=== PATIENT | female | born 1960 | race Caucasian/White ===

== ENCOUNTER 2016-09-17 09:53 | Day surgery (SDC) | payer BC ==
[2016-09-12 15:00] VITALS: BMI 26.5
[~2016-09-17 09:53] MED LIST: LACTATED RINGERS 1,000 ML IV SCH
[2016-09-17] MEDS ORDERED: LIDOCAINE 1% 20 ML VIAL (10MG/ML) FOR IV START SQ ONE (10:10)
[2016-09-17 10:13] VITALS: TEMP 97.3
[2016-09-17] MEDS ORDERED: PROPOFOL 10 MG/ML 20 ML VIAL IV ONE (11:14)
--- NOTE | 2016-09-17 11:51 | P.PCN ---
Date of Procedure: 09/17/16 Procedure(s) Performed: Procedure: 1. Esophagogastroduodenoscopy and biopsy. 2. Total colonoscopy. Preoperative diagnosis: Screening for colon neoplasia and chronic reflux symptoms. Postoperative diagnosis: 1. Moderately sized hiatal hernia but no obvious esophagitis or complicated reflux disease. 2. Mild antral gastritis. 3. Sigmoid diverticulosis. 4. No polyps or cancer. Preparation: HalfLytely prep. Sedation: Was provided by anesthesia. Brief clinical history: The patient is a 55-year-old female who is referred for this evaluation for screening for colon neoplasia. Her last exam was more than 10 years ago. In addition, she has chronic reflux symptoms and more recently she has been having episodes of vomiting while on therapy. This evaluation is to assess for esophagitis, complicated reflux disease or other pathology in the upper GI tract. Procedure: With the patient on her left lateral decubitus position and after informed consent and adequate sedation, I passed the Olympus-GIF 160 video upper endoscope through the cricopharyngeus down the esophagus. GE junction was around 36 cm from the incisors and there was a moderately side sliding hiatal hernia. The esophagus did not show any obvious esophagitis or complicated reflux disease. The endoscope was then passed into the stomach which was insufflated with air and inspected in detail including the retroflex view in the cardia. There was some mottling and erythema in the antrum but no ulcers or erosions. Pyloric channel, duodenal bulb, post bulbar area and descending duodenum appeared within normal limits. I obtained multiple biopsies from the duodenum, antrum and esophagus then the endoscope was withdrawn and I proceeded with the colonoscopy. Perianal area did not show any fissures or fistulas. There were no masses felt on digital rectal examination. The Olympus CFQ 160L video colonoscope was then inserted in the rectum in the usual fashion and advanced to the cecum. The mucosa appeared healthy. There were multiple diverticular orifices seen scattered in the sigmoid but I saw no evidence of acute diverticulitis or strictures. No polyps or tumors were seen. I retroflexed endoscope in the rectum before the endoscope was withdrawn. The patient tolerated the procedure well. Plan: The patient was reassured. Discussed dietary measures. We will await pathology results and make further plans based on her course and biopsy results. I recommended repeat colonoscopy in 10 years.
[2016-09-17 11:56] VITALS: RESP 18
[2016-09-17] MEDS ORDERED: LACTATED RINGERS 1,000 ML IV ONE (12:30)
[2016-09-17 14:56] VITALS: BP 129/79; PULSE 71
== END 2016-09-17 14:38 | disposition home or self-care (01) ==
LOC: ORWHC2ENDO 09:53
DX: Z12.11 Encounter for screening for malignant neoplasm of colon (principal); K29.50 Unspecified chronic gastritis without bleeding; K44.9 Diaphragmatic hernia without obstruction or gangrene; K21.0 Gastro-esophageal reflux disease with esophagitis; K57.30 Diverticulosis of large intestine without perforation or abscess without bleeding; G43.909 Migraine, unspecified, not intractable, without status migrainosus; Z79.82 Long term (current) use of aspirin; Z79.899 Other long term (current) drug therapy
CPT/HCPCS: 88305; 88342; 43239; J2704; G0121; 99153

== ENCOUNTER 2016-09-17 16:46 | Observation (INO) | payer BC ==
[2016-09-17] MEDS ORDERED: MORPHINE SULFATE 4 MG/ML SYRINGE IVP STA (18:26)
[2016-09-17] MEDS ORDERED: RX INFO: IV CONTRAST WAS GIVEN 1 EACH MISC MISCELLANE PRN (18:27)
--- NOTE | 2016-09-17 18:43 | ED ---
Abdominal Pain HPI - General Source: patient, RN notes reviewed Mode of arrival: wheelchair Limitations: no limitations <Angeles Wilder - Last Filed: 09/17/16 20:02> <Bladimir Story - Last Filed: 09/17/16 21:52> - General Chief Complaint: Abdominal Pain Stated Complaint: gastric pain post scope today Time Seen by Provider: 09/17/16 17:40 - History of Present Illness Initial Comments: Patient is a 55-year-old female presents to the emergency room for evaluation of left shoulder and abdominal pain. Patient states she had a colonoscopy and endoscopy done by Dr. Davenport around 11:30 this morning. Patient states she was sent home around 3 PM this afternoon. Patient states when she got home she began developing worsening left shoulder pain and abdominal pain. Patient every time she moves her shoulder the pain radiates to the anterior portion of her chest down to her epigastric area. Patient states that she has been passing gas. Patient states she feels nauseous when she has pain. Patient states the pain comes in waves. Patient denies shortness of breath. Patient has no numbness or tingling in her arm. Patient states the pain radiates from the left side of her neck down to the anterior portion of her shoulder. Patient states she's not sure she strained a muscle during the procedure. Patient's is present with patient. Patient's states that they called Dr. Davenport and was advised to come to the emergency room. (Angeles Wilder) - Related Data Home Medications Medication Instructions Recorded Confirmed Dextroamphetamine/Amphetamine 30 mg PO DAILY 07/31/14 09/17/16 [Adderall Xr] Omeprazole [Omeprazole] 20 mg PO DAILY 07/31/14 09/17/16 Simvastatin [Simvastatin] 20 mg PO HS 07/31/14 09/17/16 Aspirin [Adult Low Dose Aspirin EC] 81 mg PO HS 09/12/16 09/17/16 Topiramate [Topiramate] 50 mg PO BID 09/12/16 09/17/16 Allergies Allergy/AdvReac Type Severity Reaction Status Date / Time No Known Allergies Allergy Verified 09/17/16 17:49 Review of Systems ROS Other: All systems not noted in ROS Statement are negative. <Angeles Wilder - Last Filed: 09/17/16 20:02> ROS Other: All systems not noted in ROS Statement are negative. <Bladimir Story - Last Filed: 09/17/16 21:52> ROS Statement: Those systems with pertinent positive or pertinent negative responses have been documented in the HPI. Past Medical History Past Medical History: GERD/Reflux, Hyperlipidemia, Neurologic Disorder Additional Past Medical History / Comment(s): MIGRAINES History of Any Multi-Drug Resistant Organisms: None Reported Past Surgical History: Appendectomy, Orthopedic Surgery Additional Past Surgical History / Comment(s): left foot SX. COLONOSCOPY, EGD Past Anesthesia/Blood Transfusion Reactions: No Reported Reaction Past Psychological History: ADD/ADHD Smoking Status: Current every day smoker Past Alcohol Use History: Occasional Past Drug Use History: None Reported - Past Family History Mother Family Medical History: No Reported History <Angeles Wilder - Last Filed: 09/17/16 20:02> General Exam Limitations: no limitations General appearance: alert Head exam: Present: atraumatic, normocephalic, normal inspection Eye exam: Present: normal appearance ENT exam: Present: normal exam Neck exam: Present: normal inspection, tenderness (Tenderness on palpating over the trapezius muscle on the left side) Respiratory exam: Present: normal lung sounds bilaterally. Absent: respiratory distress Cardiovascular Exam: Present: regular rate, normal rhythm, normal heart sounds GI/Abdominal exam: Present: soft, tenderness (Mid upper epigastric pain.), normal bowel sounds. Absent: distended, guarding, rebound, rigid Left Shoulder Exam: Present: full ROM, tenderness (anterior shoulder joint) Vascular: Present: normal capillary refill, radial pulse (2+), ulnar pulse (2+) Back exam: Present: normal inspection Neurological exam: Present: alert, oriented X3, CN II-XII intact, normal gait Psychiatric exam: Present: normal affect, normal mood Skin exam: Present: warm, dry, intact, normal color. Absent: rash <Angeles Wilder - Last Filed: 09/17/16 20:02> <Bladimir Story - Last Filed: 09/17/16 21:52> - General Exam Comments Initial Comments: Laying in exam room, appears uncomfortable secondary to pain, no acute distress. (Angeles Wilder) Course <Angeles Wilder - Last Filed: 09/17/16 20:02> <Bladimir Story - Last Filed: 09/17/16 21:52> Vital Signs 09/17/16 09/17/16 17:17 20:00 Temperature 97.1 F L Pulse Rate 82 82 Respiratory 16 18 Rate Blood Pressure 126/71 147/94 O2 Sat by Pulse 99 97 Oximetry - Reevaluation(s) Reevaluation #1: 09/17/16 20:46 Patient reevaluated by myself, Dr. Story. Patient does have still continued discomfort however states pain is not quite as severe. Abdomen has moderate diffuse tenderness. Patient updated. 09/17/16 20:56 Case was discussed in detail with Dr. Newby who is familiar with this patient including CT results. He does recommend medical admission and observation. He will consult. 09/17/16 21:23 Case was discussed in detail with Dr. Dr. Tam, who will admit for Dr. Reyes. He request discussing case with on-call surgery. Dr. Patterson has been paged. 09/17/16 21:51 Case was discussed with radiologist as well as Dr. Patterson twice. Patient will be observed throughout the night. She will consult. (Bladimir Story) Medical Decision Making - Lab Data Result diagrams: 09/17/16 18:22 09/17/16 18:22 <Angeles Wilder - Last Filed: 09/17/16 20:02> - Lab Data Result diagrams: 09/17/16 18:22 09/17/16 18:22 - Radiology Data Radiology results: report reviewed (Computed tomography scan shows no free air however does have some fluid in the abdomen.) <Bladimir Story - Last Filed: 09/17/16 21:52> - Lab Data Lab Results 09/17/16 09/17/16 09/17/16 Range/Units 18:22 18:22 18:22 WBC 14.2 H (3.8-10.6) k/uL RBC 3.52 L (3.80-5.40) m/uL Hgb 11.8 (11.4-16.0) gm/dL Hct 34.9 (34.0-46.0) % MCV 99.0 (80.0-100.0) fL MCH 33.4 (25.0-35.0) pg MCHC 33.7 (31.0-37.0) g/dL RDW 13.1 (11.5-15.5) % Plt Count 256 (150-450) k/uL Neutrophils % 89 % Lymphocytes % 8 % Monocytes % 2 % Eosinophils % 0 % Basophils % 0 % Neutrophils # 12.7 H (1.3-7.7) k/uL Lymphocytes # 1.2 (1.0-4.8) k/uL Monocytes # 0.3 (0-1.0) k/uL Eosinophils # 0.0 (0-0.7) k/uL Basophils # 0.0 (0-0.2) k/uL PT (9.0-12.0) sec INR (<1.1) APTT (22.0-30.0) sec Sodium 138 (137-145) mmol/L Potassium 3.8 (3.5-5.1) mmol/L Chloride 109 H (98-107) mmol/L Carbon Dioxide 19 L (22-30) mmol/L Anion Gap 10 mmol/L BUN 11 (7-17) mg/dL Creatinine 0.51 L (0.52-1.04) mg/dL Est GFR (MDRD) Af Amer >60 (>60 ml/min/1.73 sqM) Est GFR (MDRD) Non-Af >60 (>60 ml/min/1.73 sqM) Glucose 139 H (74-99) mg/dL Calcium 8.7 (8.4-10.2) mg/dL Magnesium 1.7 (1.6-2.3) mg/dL Total Bilirubin 0.6 (0.2-1.3) mg/dL AST 22 (14-36) U/L ALT 34 (9-52) U/L Alkaline Phosphatase 65 (38-126) U/L Total Creatine Kinase 42 (30-135) U/L CK-MB (CK-2) 0.5 (0.0-2.4) ng/mL CK-MB (CK-2) Rel Index 1.2 Troponin I <0.012 (0.000-0.034) ng/mL Total Protein 6.1 L (6.3-8.2) g/dL Albumin 3.3 L (3.5-5.0) g/dL Amylase 32 (30-110) U/L Lipase 43 (23-300) U/L 09/17/16 Range/Units 18:22 WBC (3.8-10.6) k/uL RBC (3.80-5.40) m/uL Hgb (11.4-16.0) gm/dL Hct (34.0-46.0) % MCV (80.0-100.0) fL MCH (25.0-35.0) pg MCHC (31.0-37.0) g/dL RDW (11.5-15.5) % Plt Count (150-450) k/uL Neutrophils % % Lymphocytes % % Monocytes % % Eosinophils % % Basophils % % Neutrophils # (1.3-7.7) k/uL Lymphocytes # (1.0-4.8) k/uL Monocytes # (0-1.0) k/uL Eosinophils # (0-0.7) k/uL Basophils # (0-0.2) k/uL PT 10.7 (9.0-12.0) sec INR 1.1 (<1.1) APTT 20.6 L (22.0-30.0) sec Sodium (137-145) mmol/L Potassium (3.5-5.1) mmol/L Chloride (98-107) mmol/L Carbon Dioxide (22-30) mmol/L Anion Gap mmol/L BUN (7-17) mg/dL Creatinine (0.52-1.04) mg/dL Est GFR (MDRD) Af Amer (>60 ml/min/1.73 sqM) Est GFR (MDRD) Non-Af (>60 ml/min/1.73 sqM) Glucose (74-99) mg/dL Calcium (8.4-10.2) mg/dL Magnesium (1.6-2.3) mg/dL Total Bilirubin (0.2-1.3) mg/dL AST (14-36) U/L ALT (9-52) U/L Alkaline Phosphatase (38-126) U/L Total Creatine Kinase (30-135) U/L CK-MB (CK-2) (0.0-2.4) ng/mL CK-MB (CK-2) Rel Index Troponin I (0.000-0.034) ng/mL Total Protein (6.3-8.2) g/dL Albumin (3.5-5.0) g/dL Amylase (30-110) U/L Lipase (23-300) U/L 09/17/16 20:03 Normal sinus rhythm, ventricular rate 68 bpm, NE interval 160 ms, QRS duration 92 ms, QT/QTc 442/469 ms (Angeles Wilder) Disposition <Angeles Wilder - Last Filed: 09/17/16 20:02> <Bladimir Story - Last Filed: 09/17/16 21:52> Clinical Impression: Abdominal pain Disposition: ADMITTED IP TO THIS HOSP
[2016-09-17 19:04] LABS: Basophils % (A) 0 %; CH 33.4; CHCM 33.9; Eosinophils % (A) 0 %; HCT 34.9 % (34.0-46.0); HDW 2.28; HGB 11.8 gm/dL (11.4-16.0); Luc # (Auto) 0.08; Luc % (Auto) 1; Lymphocytes # (A) 1.2 k/uL (1.0-4.8); Lymphocytes % (A) 8 %; MCH 33.4 pg (25.0-35.0); MCHC 33.7 g/dL (31.0-37.0); Mean Platelet Volume 7.1; Monocytes # (A) 0.3 k/uL (0-1.0); Monocytes % (A) 2 %; Neutrophils # (A) 12.7 k/uL (1.3-7.7); Neutrophils % (A) 89 %; RBC 3.52 m/uL (3.80-5.40); RDW 13.1 % (11.5-15.5); WBC 14.2 k/uL (3.8-10.6); WBC (Perox) 14.32
[2016-09-17 19:13] LABS: INR 1.1 (<1.1); Prothrombin Time 10.7 sec (9.0-12.0)
[2016-09-17 19:17] LABS: ALT 34 U/L (9-52); AST 22 U/L (14-36); Alkaline Phosphatase 65 U/L (38-126); Amylase 32 U/L (30-110); Anion Gap 10 mmol/L; Blood Urea Nitrogen 11 mg/dL (7-17); Calcium 8.7 mg/dL (8.4-10.2); Carbon Dioxide 19 mmol/L (22-30); Chloride 109 mmol/L (98-107); Glucose 139 mg/dL (74-99); Magnesium 1.7 mg/dL (1.6-2.3); Non-African American GFR(MDRD) >60 (>60 ml/min/1.73 sqM); Potassium 3.8 mmol/L (3.5-5.1); Sodium 138 mmol/L (137-145); Total Bilirubin 0.6 mg/dL (0.2-1.3); Total Protein 6.1 g/dL (6.3-8.2)
[2016-09-17 19:23] LABS: Creatine Kinase 42 U/L (30-135)
[2016-09-17 19:26] LABS: Partial Thromboplastin Time 20.6 sec (22.0-30.0)
[2016-09-17] MEDS ORDERED: ORPHENADRINE 30 MG/ML 2 ML VIAL IVP STA (19:29)
[2016-09-17 19:35] LABS: Creatine Kinase MB 0.5 ng/mL (0.0-2.4); Troponin I <0.012 ng/mL (0.000-0.034)
--- NOTE | 2016-09-17 20:31 | CT ---
EXAMINATION TYPE: CT abdomen pelvis w con DATE OF EXAM: 09/17/2016 7:53 PM COMPARISON: NONE HISTORY: Colonscopy and EGD this morning. Abdominal, chest and left shoulder pain and pressure. CT DLP: 901.70 mGycm Automated exposure control for dose reduction was used. TECHNIQUE: Helical acquisition of images was performed from the lung bases through the pelvis. CONTRAST: Performed without Oral Contrast and with IV Contrast, patient injected with 100 mL of Omnipaque 300. FINDINGS: There is air noted in the left upper quadrant which is thought to represent colonic air at the level of the splenic flexure. Free fluid is present within the abdomen.. LUNG BASES: Some dependent atelectatic changes are present, no pleural or pericardial effusion. LIVER/GB: No significant abnormality is appreciated. PANCREAS: No significant abnormality is seen. SPLEEN: No significant abnormality is seen. ADRENALS: No significant abnormality is seen. KIDNEYS: No significant abnormality is seen. RETROPERITONEAL ADENOPATHY: None visualized REPRODUCTIVE ORGANS: No significant abnormality is seen URINARY BLADDER: No significant abnormality is seen. PELVIC ADENOPATHY: None visualized. OSSEOUS STRUCTURES: No significant abnormality is seen. BOWEL: Scattered diverticular changes associated with the sigmoid colon OTHER: Free fluid extends into the pelvis. IMPRESSION: DIFFICULT TO EXCLUDE PERFORATION IN LIGHT OF THE FREE FLUID WITHIN THE ABDOMEN. No definite pneumoperitoneum.
[2016-09-17] MEDS ORDERED: HYDROmorphone 1 MG/ML 1 ML SYRINGE IVP STA (20:47)
[2016-09-17] MEDS ORDERED: ONDANSETRON 4 MG/2 ML VIAL IVP PRN (21:52)
[2016-09-17] MEDS ORDERED: NALOXONE 0.4 MG/ML 1 ML VIAL IV PRN (21:52)
[2016-09-17] MEDS: SODIUM CHLORIDE 0.9% 1,000 ML IV SCH (22:19)
[2016-09-17] MEDS: PANTOPRAZOLE 40 MG/10 ML VIAL IV SCH (22:19)
[2016-09-18] MEDS: HYDROmorphone 1 MG/ML 1 ML SYRINGE IVP PRN ×5 (03:27→17:35)
[2016-09-18] MEDS: SODIUM CHLORIDE 0.9% 1,000 ML IV SCH (06:30)
[2016-09-18 07:21] LABS: Basophils % (A) 0 %; CH 32.9; CHCM 32.5; Eosinophils # (A) 0.1 k/uL (0-0.7); Eosinophils % (A) 1 %; HCT 30.1 % (34.0-46.0); HDW 2.28; Luc # (Auto) 0.15; Luc % (Auto) 2; Lymphocytes # (A) 2.3 k/uL (1.0-4.8); Lymphocytes % (A) 25 %; MCHC 32.4 g/dL (31.0-37.0); MCV 101.9 fL (80.0-100.0); Macrocytosis Slight; Monocytes # (A) 0.4 k/uL (0-1.0); Monocytes % (A) 4 %; Neutrophils # (A) 6.3 k/uL (1.3-7.7); Neutrophils % (A) 69 %; RBC 2.95 m/uL (3.80-5.40); RDW 13.2 % (11.5-15.5); WBC 9.2 k/uL (3.8-10.6); WBC (Perox) 9.62
[2016-09-18 07:29] LABS: ALT 36 U/L (9-52); AST 16 U/L (14-36); Alkaline Phosphatase 64 U/L (38-126); Anion Gap 8 mmol/L; Blood Urea Nitrogen 7 mg/dL (7-17); Calcium 8.2 mg/dL (8.4-10.2); Carbon Dioxide 20 mmol/L (22-30); Chloride 113 mmol/L (98-107); Glucose 80 mg/dL (74-99); Non-African American GFR(MDRD) >60 (>60 ml/min/1.73 sqM); Potassium 3.3 mmol/L (3.5-5.1); Sodium 141 mmol/L (137-145); Total Bilirubin 0.5 mg/dL (0.2-1.3); Total Protein 5.3 g/dL (6.3-8.2)
[2016-09-18 08:04] LABS: HGB 9.7 gm/dL (11.4-16.0)
--- NOTE | 2016-09-18 08:57 | P.GSCN ---
History of Present Illness Consult date: 09/18/16 Reason for Consult: Abdominal pain History of present illness: Patient is a 55-year-old white female who presented to the emergency room with a complaint of midepigastric and somewhat diffuse abdominal discomfort following an EGD and colonoscopy yesterday. Patient also complained of some left shoulder discomfort which has largely resolved. Review of the operative note reveals that this was screening for colonic neoplasia and procedure for chronic reflux symptoms. Postoperatively she was noted to have a moderately sized hiatal hernia but no obvious esophagitis or complicated reflux disease. She had mild antral gastritis. Sigmoid diverticulosis. No polyps or cancer. Multiple biopsies from the duodenum and antrum and esophagus were obtained. There was no obvious ulcer or erosion. On the colonoscopy the mucosa appeared healthy. Were multiple diverticular orifices. The patient at this time states that her abdominal discomfort has improved. She is hungry. And computed tomography scan was performed of the abdomen which revealed some free fluid but no pneumoperitoneum. Perforation could not be ruled out. The patient's white count on admission was 14.2 and this morning is noted to be 9.2. The patient hemodynamically was stable and she is afebrile and heart rate is 90 6. pressure 145/74. Past surgical history: 1. Appendectomy 2. Foot surgery Past medical history: Negative ALLERGIES: Negative Medical patient's: 1. Omeprazole 2. Adderall 3. Topamax 4. A medication for high cholesterol. Social history: 1. Smoking one pack per day for many years Alcohol: 4 drinks per day in the summer Marijuana: Negative Review of systems: HEENT: Tinnitus Lungs: Bronchitis Heart: Negative GI: GERD : Negative Review of Systems - Constitutional Reports as per HPI - Cardiovascular Reports as per HPI - Gastrointestinal Reports as per HPI - Genitourinary Genitourinary: Reports as per HPI Past Medical History Past Medical History: GERD/Reflux, Hyperlipidemia, Neurologic Disorder Additional Past Medical History / Comment(s): MIGRAINES History of Any Multi-Drug Resistant Organisms: None Reported Past Surgical History: Appendectomy, Orthopedic Surgery Additional Past Surgical History / Comment(s): left foot SX. COLONOSCOPY, EGD Past Anesthesia/Blood Transfusion Reactions: No Reported Reaction Past Psychological History: ADD/ADHD Smoking Status: Current every day smoker Past Alcohol Use History: Occasional Past Drug Use History: None Reported - Past Family History Mother Family Medical History: No Reported History Medications and Allergies Home Medications Medication Instructions Recorded Confirmed Type Dextroamphetamine/Amphetamine 30 mg PO DAILY 07/31/14 09/17/16 History [Adderall Xr] Omeprazole [Omeprazole] 20 mg PO DAILY 07/31/14 09/17/16 History Simvastatin [Simvastatin] 20 mg PO HS 07/31/14 09/17/16 History Aspirin [Adult Low Dose Aspirin EC] 81 mg PO HS 09/12/16 09/17/16 History Topiramate [Topiramate] 50 mg PO BID 09/12/16 09/17/16 History Allergies Allergy/AdvReac Type Severity Reaction Status Date / Time No Known Allergies Allergy Verified 09/17/16 17:49 Surgical - Exam Vital Signs Temp Pulse Resp BP Pulse Ox 97.1 F L 82 16 126/71 99 09/17/16 17:17 09/17/16 17:17 09/17/16 17:17 09/17/16 17:17 09/17/16 17:17 - General well developed, well nourished, no distress - Eyes normal ocular movement - ENT normal pinna, normal nares, no hearing loss - Neck no masses, trachea midline, no lymphadectomy, no venous distension - Respiratory normal expansion, normal respiratory effort, clear to auscultation - Cardiovascular Rhythm: regular - Abdomen Minimal midepigastric tenderness No guarding or rebound Abdomen: soft, bowel sounds - Psychiatric oriented to time, oriented to person, oriented to place, speech is normal Results - Labs 09/18/16 06:49 09/18/16 06:49 Abnormal Lab Results - Last 24 Hours (Table) 09/18/16 09/18/16 Range/Units 06:49 06:49 RBC 2.95 L (3.80-5.40) m/uL Hgb 9.7 L D (11.4-16.0) gm/dL Hct 30.1 L (34.0-46.0) % MCV 101.9 H (80.0-100.0) fL Potassium 3.3 L (3.5-5.1) mmol/L Chloride 113 H (98-107) mmol/L Carbon Dioxide 20 L (22-30) mmol/L Calcium 8.2 L (8.4-10.2) mg/dL Total Protein 5.3 L (6.3-8.2) g/dL Albumin 2.9 L (3.5-5.0) g/dL Diabetes panel 09/18/16 Range/Units 06:49 Sodium 141 (137-145) mmol/L Potassium 3.3 L (3.5-5.1) mmol/L Chloride 113 H (98-107) mmol/L Carbon Dioxide 20 L (22-30) mmol/L BUN 7 (7-17) mg/dL Creatinine 0.56 (0.52-1.04) mg/dL Glucose 80 (74-99) mg/dL Calcium 8.2 L (8.4-10.2) mg/dL AST 16 (14-36) U/L ALT 36 (9-52) U/L Alkaline Phosphatase 64 (38-126) U/L Total Protein 5.3 L (6.3-8.2) g/dL Albumin 2.9 L (3.5-5.0) g/dL Calcium panel 09/18/16 Range/Units 06:49 Calcium 8.2 L (8.4-10.2) mg/dL Albumin 2.9 L (3.5-5.0) g/dL Pituitary panel 09/18/16 Range/Units 06:49 Sodium 141 (137-145) mmol/L Potassium 3.3 L (3.5-5.1) mmol/L Chloride 113 H (98-107) mmol/L Carbon Dioxide 20 L (22-30) mmol/L BUN 7 (7-17) mg/dL Creatinine 0.56 (0.52-1.04) mg/dL Glucose 80 (74-99) mg/dL Calcium 8.2 L (8.4-10.2) mg/dL Adrenal panel 09/18/16 Range/Units 06:49 Sodium 141 (137-145) mmol/L Potassium 3.3 L (3.5-5.1) mmol/L Chloride 113 H (98-107) mmol/L Carbon Dioxide 20 L (22-30) mmol/L BUN 7 (7-17) mg/dL Creatinine 0.56 (0.52-1.04) mg/dL Glucose 80 (74-99) mg/dL Calcium 8.2 L (8.4-10.2) mg/dL Total Bilirubin 0.5 (0.2-1.3) mg/dL AST 16 (14-36) U/L ALT 36 (9-52) U/L Alkaline Phosphatase 64 (38-126) U/L Total Protein 5.3 L (6.3-8.2) g/dL Albumin 2.9 L (3.5-5.0) g/dL - Imaging CT scan - abdomen: report reviewed, image reviewed CT scan - pelvis: report reviewed, image reviewed Assessment and Plan Plan: Impression/plan: 1. 55-year-old white female who presents status post EGD and colonoscopy with abdominal discomfort 2. GERD 3. Hiatal hernia 4. Computed tomography scan with some free fluid but no pneumoperitoneum Plan: 1. At this time patient does not have an acute surgical abdomen uncertain of the etiology of the fluid in the peritoneal cavity 2. Will review computed tomography scan with radiology. Continue conservative management will obtain abdominal x-rays this morning
--- NOTE | 2016-09-18 09:06 | P.CONS ---
History of Present Illness - Reason for Consult Consult date: 09/18/16 Abdominal pain Requesting physician: Erik Tam - History of Present Illness 55-year-old female patient of Dr. Matthews with a past history of GERD hyperlipidemia and migraines nicotine cigarette dependency and ADHD. She underwent EGD colonoscopy yesterday for colon neoplasia screening and chronic reflux symptoms. Findings were moderate size hiatal hernia but no obvious esophagitis complicated reflux disease. Sigmoid diverticulosis. No polyps or cancer. No polypectomies performed. Patient was discharged home and developed severe left-sided abdominal pain radiating to her left shoulder. Computed tomography scan abdomen and pelvis reported difficulty exclude an perforation in light of free fluid within the abdomen. Air noted in the left upper quadrant which thought to represent colonic air at the level of the splenic flexure. No definite pneumoperitoneum was identified. This morning she still reports left-sided discomfort but not as severe. Afebrile. White count 9.2. Hemoglobin 9.7. Review of Systems Constitutional: Denies fever, chills, sweats, weight gain, or loss. HEENT: History of migraines, denies blurred vision or loss, earaches, drainage, tinnitus, oral mucosal lesions, dysphagia, or odynophagia. CARDIAC: Hyperlipidemia. Negative for chest pain, arrhythmias, or palpitation. RESPIRATORY: Cigarette nicotine dependency. Negative for shortness of breath, hemoptysis, cough, or sputum production. GI: See HPI for pertinent findings. : Negative for hematuria, urgency, frequency, polyuria, or dysuria. GYNc: Denies possibility of . Negative vaginal discharge. MUSCULOSKELETAL: Negative for muscle aches, swelling, arthritis, and arthralgias. NEUROLOGIC: Negative for stroke or TIA. ENDOCRINE: Negative for thyroid problems. SKIN: Negative for rash or itching. PSYCHIATRIC: ADHD. Negative history for depression and anxiety All systems: negative (See HPI) Past Medical History Past Medical History: GERD/Reflux, Hyperlipidemia, Neurologic Disorder Additional Past Medical History / Comment(s): MIGRAINES History of Any Multi-Drug Resistant Organisms: None Reported Past Surgical History: Appendectomy, Orthopedic Surgery Additional Past Surgical History / Comment(s): left foot SX. COLONOSCOPY, EGD Past Anesthesia/Blood Transfusion Reactions: No Reported Reaction Past Psychological History: ADD/ADHD Smoking Status: Current every day smoker Past Alcohol Use History: Occasional Past Drug Use History: None Reported - Past Family History Mother Family Medical History: No Reported History Medications and Allergies Home Medications Medication Instructions Recorded Confirmed Type Dextroamphetamine/Amphetamine 30 mg PO DAILY 07/31/14 09/17/16 History [Adderall Xr] Omeprazole [Omeprazole] 20 mg PO DAILY 07/31/14 09/17/16 History Simvastatin [Simvastatin] 20 mg PO HS 07/31/14 09/17/16 History Aspirin [Adult Low Dose Aspirin EC] 81 mg PO HS 09/12/16 09/17/16 History Topiramate [Topiramate] 50 mg PO BID 09/12/16 09/17/16 History Allergies Allergy/AdvReac Type Severity Reaction Status Date / Time No Known Allergies Allergy Verified 09/17/16 17:49 Physical Exam Vitals: Vital Signs Temp Pulse Pulse Resp BP BP Pulse Ox 09/18/16 07:30 98.1 F 96 16 145/74 95 09/18/16 01:55 97.9 F 93 16 143/84 96 09/17/16 23:03 97.4 F L 87 16 149/91 94 L 09/17/16 23:00 97.4 F L 87 16 149/91 94 L 09/17/16 22:22 97.3 F L 94 18 148/88 97 Intake and Output 09/17/16 09/18/16 09/18/16 22:59 06:59 14:59 Intake Total 720 Balance 720 Intake: Intake, IV Titration 720 Amount Sodium Chloride 0.9% 1, 720 000 ml @ 120 mls/hr IV . Q8H20M [facility] Rx#:[id number] Other: Voiding Method Toilet General appearance: The patient is alert, oriented, in no acute distress. HET: Head is normocephalic and atraumatic. Pupils are equal and reactive. Oropharynx is clear without lesions. Neck: Supple without lymphadenopathy. Trachea midline. Heart: S1 S2. Regular rate and rhythm. Lungs: No crackles or wheezes are heard. Abdomen: Soft, mild tenderness left upper quadrant, nondistended with bowel sounds. No peritoneal signs. No palpable organomegaly or masses. Extremities: Normal skin color and turgor. No cyanosis, rash, ulceration, clubbing, or edema. Radial and pedal pulses are 2/4 bilaterally. Neurological: No focal deficits. Strength and sensation are grossly intact. Results CBC & Chem 7: 09/18/16 06:49 09/18/16 06:49 Labs: Abnormal Lab Results - Last 24 Hours (Table) 09/18/16 09/18/16 Range/Units 06:49 06:49 RBC 2.95 L (3.80-5.40) m/uL Hgb 9.7 L D (11.4-16.0) gm/dL Hct 30.1 L (34.0-46.0) % MCV 101.9 H (80.0-100.0) fL Potassium 3.3 L (3.5-5.1) mmol/L Chloride 113 H (98-107) mmol/L Carbon Dioxide 20 L (22-30) mmol/L Calcium 8.2 L (8.4-10.2) mg/dL Total Protein 5.3 L (6.3-8.2) g/dL Albumin 2.9 L (3.5-5.0) g/dL CT scan - abdomen: report reviewed (Reviewed by Dr. Washington) Assessment and Plan (1) Abdominal pain Narrative/Plan: 55 year old female status post EGD colonoscopy with development of severe left- sided abdominal pain radiating to her shoulder CT imaging reporting free fluid in the abdomen difficult to exclude pneumoperitoneum.Other differentials to consider is splenocolic ligament injury possible splenic subcapsular injury. Status: Acute Plan: 1. Gen. surgical consultation. We'll defer to general surgery for further recommendations upon review of abdominal x-rays. 2. Abdominal x-rays. CBC monitoring. 3. Nothing by mouth. Thank you for this kind referral and the opportunity to participate in the care of your patient. This consultation was discussed with Dr. Washington. The impression and plan of care have been directed as dictated.
--- NOTE | 2016-09-18 09:59 | XR ---
EXAMINATION TYPE: XR abdomen complete w decub DATE OF EXAM: 09/18/2016 9:43 AM COMPARISON: CT abdomen pelvis 17 September 2016, plain film 31 July 2014 HISTORY: Status post colonoscopy, abdominal pain, abnormal CT TECHNIQUE: 3 views of the abdomen are submitted. FINDINGS: Single view of the chest show some patchy basilar atelectatic change. Contrast is present within the urinary bladder. Degenerative disc changes are present in the visualized spine. There is no evidence for pneumoperitoneum. The bowel gas pattern is unremarkable as there is air throughout nondilated small and large bowel. No sizeable air fluid levels. No mass effects are seen. No unusual calcifications. IMPRESSION: Basilar atelectasis.
[2016-09-18 10:30] LABS: Basophils % (A) 0 %; CH 32.9; CHCM 32.4; Eosinophils # (A) 0.1 k/uL (0-0.7); Eosinophils % (A) 1 %; HCT 30.6 % (34.0-46.0); Luc # (Auto) 0.14; Luc % (Auto) 2; Lymphocytes % (A) 24 %; MCH 33.3 pg (25.0-35.0); MCHC 32.6 g/dL (31.0-37.0); Macrocytosis Slight; Monocytes # (A) 0.3 k/uL (0-1.0); Monocytes % (A) 4 %; Neutrophils # (A) 5.8 k/uL (1.3-7.7); Neutrophils % (A) 69 %; RDW 13.2 % (11.5-15.5); WBC 8.3 k/uL (3.8-10.6); WBC (Perox) 8.88
[2016-09-18] MEDS: PANTOPRAZOLE 40 MG/10 ML VIAL IV SCH (12:37)
--- NOTE | 2016-09-18 13:19 | P.PN ---
Progress Note - Text Spoke with radiologist Dr. Lemon they recommend repeating the CT abdomen pelvis on the with IV contrast
[2016-09-18] MEDS ORDERED: RX INFO: IV CONTRAST WAS GIVEN 1 EACH MISC MISCELLANE PRN (13:21)
[2016-09-18] MEDS: LACTATED RINGERS 1,000 ML IV SCH (13:38)
--- NOTE | 2016-09-18 15:53 | P.HPIM ---
History of Present Illness H&P Date: 09/18/16 Chief Complaint: Severe abdominal pain, possible perforation, post EGD and colonoscopy yeste 55-year-old female one of Dr. Matthews's patient who has been struggling with severe GERD heartburn and hiatal hernia causing patient to enforce herself to throw up to be disease and relief from her discomfort and pain specially after food. Patient was scheduled for elective EGD with Dr. Newby along with colonoscopy which was performed on 09/17/2016 successfully finding were consistent with severe GERD and have a hernia with mild gastritis colonoscopy was not significant at all. Patient was in recovery for a period of time with mild hypotension and discomfort finally made it home developed to have significant generalized abdominal pain with nausea or pain become 8-9 out of 10 which much worsening than expected ended up coming to the emergency department at [facility] where was seen and evaluated. Her CAT scan of the abdomen with IV contrast with no oral came back with slightly bit positive finding consistent with fluid in the peritoneum area with no free air but still suspicious for perforation. Dr. Epstein was called before the admission and agreed to have patient on pain management hydration repeat another x-ray and evaluated in the morning. Patient was seen today by GI and general surgery review CAT scan with radiology for better view to repeat another CAT scan with IV contrast in 24 hours to see if there is any progression or any consistent problem with pneumoperitoneum consistent with perforation. Continue nothing by mouth for now with her pain and symptoms are slightly but better in the last few hours. Review of Systems Constitutional: Reports anorexia, Reports fatigue, Reports malaise, Reports poor appetite, Reports weakness, Denies as per HPI, Denies chills, Denies chronic headaches, Denies chronic pain, Denies daytime sleepiness, Denies fever , Denies lethargy, Denies night sweats, Denies sweats, Denies weight gain, Denies weight loss Eyes: bilateral as per HPI Ears: bilateral: decreased hearing Ears, nose, mouth and throat: Reports ant. neck pain, Reports mouth pain, Reports nasal congestion, Reports sinus pain, Reports sinus pressure, Denies as per HPI, Denies bleeding gums, Denies dental pain, Denies dysphagia, Denies epistaxis, Denies headache, Denies hoarseness, Denies nasal discharge, Denies neck fullness/pressure, Denies neck lump, Denies nose pain, Denies odynophagia, Denies post-nasal drip, Denies swelling in mouth, Denies swelling in throat, Denies sore throat, Denies vertigo, Denies voice changes Cardiovascular: Reports chest pain, Reports claudication, Reports decreased exercise tolerance, Reports lightheadedness, Reports palpitations, Denies as per HPI, Denies dyspnea on exertion, Denies edema, Denies high blood pressure, Denies irregular heart beat, Denies leg edema, Denies orthopnea, Denies paroxysmal nocturnal dyspnea, Denies phlebitis, Denies rapid heart beat, Denies shortness of breath, Denies syncope Respiratory: Reports congestion, Reports hemoptysis, Reports respiratory infections, Denies as per HPI, Denies cough, Denies cough with sputum, Denies dyspnea, Denies excessive sputum, Denies home oxygen, Denies pain, Denies pain on inspiration, Denies pleurisy, Denies sleep apnea, Denies snoring, Denies wheezing Gastrointestinal: Reports abdominal pain, Reports bloating, Reports change in bowel habits, Reports coffee ground emesis, Reports dyspepsia, Reports excessive gas, Reports heartburn, Reports indigestion, Reports loss of appetite , Reports nausea, Denies as per HPI, Denies belching, Denies BRBPR, Denies constipation, Denies diarrhea, Denies early satiety, Denies hematemesis, Denies hematochezia, Denies jaundice, Denies lactose intolerance, Denies melena, Denies vomiting Genitourinary: Reports urgency, Reports urinary frequency, Denies as per HPI, Denies abnormal vaginal bleeding, Denies decreased libido, Denies difficulty conceiving, Denies difficulty voiding, Denies dysmenorrhea, Denies dyspareunia, Denies dysuria, Denies flank pain, Denies genital sores, Denies hematuria, Denies hot flashes, Denies incomplete emptying, Denies kidney stones, Denies menorrhagia, Denies mixed incontinence, Denies nocturia, Denies pelvic pain, Denies post void dribbling, Denies , Denies prolapse symptoms, Denies stress incontinence, Denies urge incontinence, Denies vaginal discharge, Denies vaginal dryness, Denies vaginal itching, Denies vaginal odor Musculoskeletal: bilateral: ankle pain Neurological: Denies as per HPI, Denies aphasia, Denies ataxia, Denies balance difficulties, Denies burning pain, Denies change in mentation, Denies change in smell/taste, Denies change in speech, Denies confusion, Denies convulsions, Denies double vision, Denies gait dysfunction, Denies head injury, Denies headaches, Denies hearing difficulties, Denies lack of coordination, Denies loss of vision, Denies memory loss, Denies migraines, Denies motor disturbance, Denies numbness, Denies paralysis, Denies paresthesias, Denies seizures, Denies sensory deficit, Denies spasticity, Denies syncope, Denies tic, Denies tingling , Denies transient paralysis, Denies tremors, Denies vertigo, Denies weakness, Denies visual changes Psychiatric: Reports anxiety, Denies as per HPI, Denies anhedonia, Denies anxiety attacks, Denies change in appetite, Denies change in libido, Denies change in sleep habits, Denies confusion, Denies depression, Denies difficulty concentrating, Denies disorientation, Denies hallucinations, Denies hopelessness , Denies hypersomnia, Denies insomnia, Denies irritability, Denies memory loss, Denies mood swings, Denies paranoia, Denies sadness/tearfulness, Denies sleep disturbances, Denies suicidal ideation Endocrine: Reports cold intolerance, Reports fatigue, Denies as per HPI, Denies deepening of the voice, Denies excessive sweating, Denies excessive thirst, Denies flushing, Denies heat intolerance, Denies high blood sugars, Denies increase in ring/shoe/hat size, Denies low blood sugars, Denies nocturia, Denies palpitations, Denies polydipsia, Denies polyphagia, Denies polyuria, Denies proptosis, Denies recent glucocorticoid use, Denies thyroid mass, Denies weight change Hematologic/Lymphatic: Reports easy bruising, Denies as per HPI, Denies easy bleeding, Denies lymphadenopathy, Denies lymphedema, Denies thrombophilia Allergic/Immunologic: Denies as per HPI, Denies allergic rhinitis, Denies anaphylaxis, Denies angioedema, Denies gluten intolerance, Denies persistent infections, Denies seasonal allergies, Denies urticaria, Denies wheezing Past Medical History Past Medical History: GERD/Reflux, Hyperlipidemia, Neurologic Disorder Additional Past Medical History / Comment(s): MIGRAINES History of Any Multi-Drug Resistant Organisms: None Reported Past Surgical History: Appendectomy, Orthopedic Surgery Additional Past Surgical History / Comment(s): left foot SX. COLONOSCOPY, EGD Past Anesthesia/Blood Transfusion Reactions: No Reported Reaction Past Psychological History: ADD/ADHD Smoking Status: Current every day smoker Past Alcohol Use History: Occasional Past Drug Use History: None Reported - Past Family History Mother Family Medical History: No Reported History Medications and Allergies Home Medications Medication Instructions Recorded Confirmed Type Dextroamphetamine/Amphetamine 30 mg PO DAILY 07/31/14 09/17/16 History [Adderall Xr] Omeprazole [Omeprazole] 20 mg PO DAILY 07/31/14 09/17/16 History Simvastatin [Simvastatin] 20 mg PO HS 07/31/14 09/17/16 History Aspirin [Adult Low Dose Aspirin EC] 81 mg PO HS 09/12/16 09/17/16 History Topiramate [Topiramate] 50 mg PO BID 09/12/16 09/17/16 History Allergies Allergy/AdvReac Type Severity Reaction Status Date / Time No Known Allergies Allergy Verified 09/17/16 17:49 Physical Exam Vitals: Vital Signs Temp Pulse Pulse Resp BP BP Pulse Ox 09/18/16 11:52 97.8 F 90 16 160/78 95 09/18/16 07:30 98.1 F 96 16 145/74 95 09/18/16 01:55 97.9 F 93 16 143/84 96 09/17/16 23:03 97.4 F L 87 16 149/91 94 L 09/17/16 23:00 97.4 F L 87 16 149/91 94 L 09/17/16 22:22 97.3 F L 94 18 148/88 97 Intake and Output 09/18/16 09/18/16 09/18/16 06:59 14:59 22:59 Intake Total 720 960 Balance 720 960 Intake: IV 960 Sodium Chloride 0.9% 1, 960 000 ml @ 120 mls/hr IV . Q8H20M [facility] Rx#:[id number] Intake, IV Titration 720 Amount Sodium Chloride 0.9% 1, 720 000 ml @ 120 mls/hr IV . Q8H20M [facility] Rx#:[id number] Other: Voiding Method Toilet - Constitutional General appearance: no average body habitus, no cooperative, disheveled, mild distress, no morbidly obese, no no acute distress, no obese, no severe distress , no thin - EENT Eyes: no abnormal pupil, no anicteric sclerae, no disc margins sharp, no edentulous, no EOMI, no PERRLA, no fundus normal, no photophobia, no dentition normal, no poor dentition, no ptosis, no scleral icterus, normal appearance ENT: no hard of hearing, no hearing grossly normal, no NA/AT, no normal oropharynx, no other, pharyngeal erythema, no thrush, no tonsillar exudates, no tonsillar swelling Ears: bilateral: normal - Neck Neck: no lymphadenopathy, normal ROM, no other, no rigidity, no stridor, no thyromegaly Carotids: bilateral: upstroke normal Thyroid: bilateral: normal size - Respiratory Respiratory: bilateral: CTA, diminished - Cardiovascular Rhythm: regular Heart sounds: normal: S1, S2 Abnormal Heart Sounds: systolic murmur - Gastrointestinal General gastrointestinal: no absent bowel sounds, decreased bowel sounds, distended, no hepatomegaly, no hyperactive bowel sounds, no normal bowel sounds , no organomegaly, no rigid, no scaphoid, soft, no splenomegaly, tenderness, no umbilical hernia, no ventral hernia - Integumentary Integumentary: no calor, no cellulitis, no cyanotic, no decreased turgor, no flushed, no jaundiced, normal, no normal turgor, pale, rash, no ulcer - Neurologic Neurologic: CNII-XII intact - Musculoskeletal Musculoskeletal: gait normal, generalized weakness, strength equal bilaterally, no right sided weakness, no left sided weakness - Psychiatric Psychiatric: A&O x's 3, appropriate affect Results CBC & Chem 7: 09/18/16 10:11 09/18/16 06:49 Labs: Abnormal Lab Results - Last 24 Hours (Table) 09/18/16 09/18/16 09/18/16 Range/Units 06:49 06:49 10:11 RBC 2.95 L 3.00 L (3.80-5.40) m/uL Hgb 9.7 L D 10.0 L (11.4-16.0) gm/dL Hct 30.1 L 30.6 L (34.0-46.0) % MCV 101.9 H 102.0 H (80.0-100.0) fL Potassium 3.3 L (3.5-5.1) mmol/L Chloride 113 H (98-107) mmol/L Carbon Dioxide 20 L (22-30) mmol/L Calcium 8.2 L (8.4-10.2) mg/dL Total Protein 5.3 L (6.3-8.2) g/dL Albumin 2.9 L (3.5-5.0) g/dL Thrombosis Risk Factor Assmnt - DVT/VTE Prophylaxis DVT/VTE Prophylaxis: Mechanical Prophylaxis ordered - Choose All That Apply Each Factor Represents 1 point: Age 41-60 years Thrombosis Risk Factor Assessment Total Risk Factor Score: 1 Thrombosis Risk Factor Assessment Level: Low Risk Assessment and Plan Plan: 1 severe abdominal pain: Shortly after colonoscopy and EGD with suspicion for perforation was not confirmed on her original CAT scan. Patient will stay on conservative management surgical consultation and GI consultation continue hydration pain management repeat another x-ray and possible another CAT scan in 24 hours. Continue nothing by mouth for now. 2 severe GERD and large Hernia: Patient still symptomatic continue patient on pantoprazole IV for now ration will discuss probably other option with her symptom being severely weight is with the general surgeon as an outpatient. 3 hyperlipidemia: Hold off simvastatin for now patient will be on simvastatin when she is able to take oral meds. 4 ADD: Has been on Adderall resume medication as she has patient able to medication. 5 migraine: Has been on Topamax with secondary prevention doing very well so far. 6 smoking: Smoking cessation was addressed patient will be on nicotine patch 14 mg daily. 7 GI prophylaxis: Will be on pantoprazole. 8 DVT prophylaxis: Continue patient on Venodyne boots and knee-high FIONA hose. CODE STATUS: Full code. Expectation from this admission: Patient be in the hospital for more than 2 nights.
[2016-09-18] MEDS: NICOTINE 14MG/24HR PATCH TRANSDERM SCH (17:37)
[2016-09-18 18:26] LABS: Basophils % (A) 0 %; CHCM 32.8; Eosinophils % (A) 1 %; HCT 27.4 % (34.0-46.0); HDW 2.32; HGB 9.1 gm/dL (11.4-16.0); Luc # (Auto) 0.13; Luc % (Auto) 2; Lymphocytes # (A) 1.6 k/uL (1.0-4.8); Lymphocytes % (A) 20 %; MCH 33.5 pg (25.0-35.0); MCHC 33.1 g/dL (31.0-37.0); MCV 101.1 fL (80.0-100.0); Monocytes # (A) 0.3 k/uL (0-1.0); Monocytes % (A) 4 %; Neutrophils # (A) 6.2 k/uL (1.3-7.7); Neutrophils % (A) 74 %; RBC 2.71 m/uL (3.80-5.40); RDW 13.2 % (11.5-15.5); WBC 8.3 k/uL (3.8-10.6); WBC (Perox) 8.72
[2016-09-18 23:41] LABS: Basophils % (A) 0 %; CH 33.2; CHCM 33.2; Eosinophils # (A) 0.1 k/uL (0-0.7); Eosinophils % (A) 1 %; HCT 28.5 % (34.0-46.0); HDW 2.36; HGB 9.3 gm/dL (11.4-16.0); Luc # (Auto) 0.09; Luc % (Auto) 1; Lymphocytes # (A) 1.4 k/uL (1.0-4.8); Lymphocytes % (A) 17 %; MCHC 32.8 g/dL (31.0-37.0); MCV 100.4 fL (80.0-100.0); Mean Platelet Volume 7.4; Monocytes # (A) 0.4 k/uL (0-1.0); Monocytes % (A) 4 %; Neutrophils # (A) 6.7 k/uL (1.3-7.7); Neutrophils % (A) 78 %; RBC 2.84 m/uL (3.80-5.40); RDW 13.1 % (11.5-15.5); WBC 8.6 k/uL (3.8-10.6); WBC (Perox) 8.94
[2016-09-19] MEDS: LACTATED RINGERS 1,000 ML IV SCH ×3 (04:53→19:23)
[2016-09-19 07:12] LABS: Basophils % (A) 0 %; CH 33.1; Eosinophils % (A) 1 %; HCT 28.7 % (34.0-46.0); HDW 2.28; HGB 9.4 gm/dL (11.4-16.0); Luc # (Auto) 0.11; Luc % (Auto) 1; Lymphocytes # (A) 1.5 k/uL (1.0-4.8); Lymphocytes % (A) 18 %; MCH 33.2 pg (25.0-35.0); MCHC 32.9 g/dL (31.0-37.0); MCV 100.9 fL (80.0-100.0); Mean Platelet Volume 7.2; Monocytes # (A) 0.3 k/uL (0-1.0); Monocytes % (A) 4 %; Neutrophils # (A) 6.1 k/uL (1.3-7.7); Neutrophils % (A) 76 %; RBC 2.84 m/uL (3.80-5.40)
[2016-09-19] MEDS: HYDROmorphone 1 MG/ML 1 ML SYRINGE IVP PRN ×3 (07:14→21:16)
--- NOTE | 2016-09-19 08:44 | CT ---
EXAMINATION TYPE: CT abdomen pelvis w con DATE OF EXAM: 09/19/2016 8:24 AM REFERENCE: Previous study dated 09/17/2016. HISTORY: Follow-up HISTORY: Follow up study to scan from 2 days ago. Colonoscopy and EGD 2 days ago. Continued abdominal , chest and left shoulder pain and pressure. REFERENCE: NONE CT DLP: 540.3 mGy Automated exposure control for dose reduction was used. TECHNIQUE: Helical acquisition through the abdomen and pelvis was obtained following the oral ingesti on of without Oral Contrast and following intravenous administration of 100 mL of Omnipaque 300. The data was reformatted in axial, coronal and sagittal projections. FINDINGS: There is bibasilar atelectasis. There is a small right-sided effusion. There is no pericar dial fluid. The heart is normal in size. Within the abdomen, there is a small amount of free fluid. This is decreased significantly from the p revious study. There is contrast within the gallbladder, likely representing vicarious excretion of contrast. The li kavita appears normal. There is a 3.2 x 1.6 area of decreased attenuation persists in the posterior aspe ct of the spleen. This may represent a subcapsular hematoma. It is unchanged from previous. Both adrenal glands are normal. Both kidneys demonstrate function and appear morphologically normal. Pancreas appears unremarkable. There is minimal atheromatous calcification of the abdominal aorta. There is no significant retroperitoneal, iliac or inguinal adenopathy. The bladder is unremarkable. There are scattered diverticula in the sigmoid region without radiographic evidence of diverticulitis . The appendix is not visualized with certainty. There are mildly distended fluid-filled loops of small bowel in the distal jejunum and ileum. No free air is identified. There is facet arthropathy in the lower lumbar facets. IMPRESSION: 1. BIBASILAR AIRSPACE DISEASE. 2. SMALL RIGHT EFFUSION. 3. SMALL AMOUNT OF FREE FLUID WITHIN THE ABDOMEN, DECREASED FROM PREVIOUS. 4. PERSISTENT AREA OF DECREASED ATTENUATION IN THE POSTERIOR ASPECT OF THE SPLEEN. 5. MINIMAL, UNCOMPLICATED DIVERTICULOSIS OF THE SIGMOID COLON. 6. MILD FACET ARTHROPATHY IN THE LOWER LUMBAR FACETS. 7. MINIMAL DISTENDED, FLUID-FILLED LOOPS OF DISTAL SMALL BOWEL.
--- NOTE | 2016-09-19 08:58 | P.PN ---
Subjective Principal diagnosis: Abdominal pain following the EGD colonoscopy, computed tomography scan showing fluid in the abdomen probable small splenic posterior subcapsular hematoma The patient is a 55-year-old white female who is status post EGD and colonoscopy. She presented to the emergency room with abdominal discomfort. Computed tomography scan revealed fluid in the peritoneal cavity and findings consistent with a most likely subcapsular splenic hematoma. The patient has been hemodynamically stable. The pain is resolved. The patient's repeat CAT scan shows findings again consistent with a posterior splenic subcapsular hematoma most likely. There does not appear to be any increase in free fluid in the peritoneal cavity. Objective - Vital Signs Vital signs: Vital Signs Temp 98.5 F 09/19/16 07:00 Pulse 82 09/19/16 07:00 Resp 16 09/19/16 07:00 BP 137/82 09/19/16 07:00 Pulse Ox 94 L 09/19/16 07:00 Intake & Output 09/18/16 09/19/16 09/19/16 18:59 06:59 18:59 Intake Total 960 1320 Balance 960 1320 Intake: IV 960 Sodium Chloride 0.9% 1, 960 000 ml @ 120 mls/hr IV . Q8H20M [facility] Rx#:[id number] Intake, IV Titration 1320 Amount Lactated Ringers 1,000 ml 1320 @ 120 mls/hr IV .Q8H20M [facility] Rx#:[id number] Other: Voiding Method Toilet # Voids 2 - Constitutional General appearance: Present: average body habitus - Respiratory Details: Slightly decreased breath sounds at the bases Respiratory: bilateral: CTA - Cardiovascular Rhythm: regular - Gastrointestinal Gastrointestinal Comment(s): No guarding or rebound General gastrointestinal: Present: normal bowel sounds, soft - Psychiatric Psychiatric: Present: A&O x's 3, appropriate affect, intact judgment & insight - Labs CBC & Chem 7: 09/19/16 06:29 09/18/16 06:49 Labs: Abnormal Lab Results - Last 24 Hours (Table) 09/18/16 09/18/16 09/18/16 Range/Units 10:11 17:58 17:58 RBC 3.00 L 2.71 L (3.80-5.40) m/uL Hgb 10.0 L 9.1 L (11.4-16.0) gm/dL Hct 30.6 L 27.4 L (34.0-46.0) % MCV 102.0 H 101.1 H (80.0-100.0) fL Plasma Lactic Acid Theodore <0.5 L (0.7-2.0) mmol/L 09/18/16 09/19/16 Range/Units 23:25 06:29 RBC 2.84 L 2.84 L (3.80-5.40) m/uL Hgb 9.3 L 9.4 L (11.4-16.0) gm/dL Hct 28.5 L 28.7 L (34.0-46.0) % MCV 100.4 H 100.9 H (80.0-100.0) fL Plasma Lactic Acid Theodore (0.7-2.0) mmol/L - Imaging and Cardiology CT scan - abdomen: report reviewed, image reviewed CT scan - pelvis: report reviewed, image reviewed Assessment and Plan Plan: Impression/plan: 1. 55-year-old white female who presents status post EGD and colonoscopy with abdominal discomfort 2. GERD 3. Hiatal hernia 4. Computed tomography scan with stable fluid in the peritoneal cavity, posterior splenic subcapsular hematoma 5. Hemoglobin stable Plan: 1. We'll start diet 2. Continue to monitor hemodynamically 3. Probable discharge home tomorrow
[2016-09-19] MEDS: NICOTINE 14MG/24HR PATCH TRANSDERM SCH (09:18)
[2016-09-19] MEDS: PANTOPRAZOLE 40 MG/10 ML VIAL IV SCH (09:19)
--- NOTE | 2016-09-19 10:58 | P.PN ---
Subjective Principal diagnosis: Abdominal pain 55-year-old female status post recent EGD colonoscopy admitted with left upper quadrant abdominal pain possible splenocolic ligament subcapsular splenic injury. Feels better. Diet initiated this morning and tolerating well. Repeat CT scan abdomen and pelvis this morning reported small amount of free fluid within the abdomen decreasing previous study with persistent area of decreased attenuation in the posterior aspect of the spleen. Hemoglobin 9.4. Objective - Vital Signs Vital signs: Vital Signs Temp 98.5 F 09/19/16 07:00 Pulse 82 09/19/16 07:00 Resp 16 09/19/16 07:00 BP 137/82 09/19/16 07:00 Pulse Ox 94 L 09/19/16 07:00 Intake & Output 09/18/16 09/19/16 09/19/16 18:59 06:59 18:59 Intake Total 960 1320 240 Balance 960 1320 240 Intake: IV 960 Sodium Chloride 0.9% 1, 960 000 ml @ 120 mls/hr IV . Q8H20M [facility] Rx#:[id number] Intake, IV Titration 1320 Amount Lactated Ringers 1,000 ml 1320 @ 120 mls/hr IV .Q8H20M [facility] Rx#:[id number] Oral 240 Other: Voiding Method Toilet # Voids 2 - Exam General appearance: The patient is alert, oriented, in no acute distress. HET: Head is normocephalic and atraumatic. Pupils are equal and reactive. Oropharynx is clear without lesions. Neck: Supple without lymphadenopathy. Trachea midline. Heart: S1 S2. Regular rate and rhythm. Lungs: No crackles or wheezes are heard. Abdomen: Soft, very mild left upper quadrant tenderness, mild right lower quadrant tenderness, nondistended with bowel sounds. No peritoneal signs. No palpable organomegaly or masses. Extremities: Normal skin color and turgor. No cyanosis, rash, ulceration, clubbing, or edema. Radial and pedal pulses are 2/4 bilaterally. Neurological: No focal deficits. Strength and sensation are grossly intact. - Labs CBC & Chem 7: 09/19/16 06:29 09/18/16 06:49 Labs: Abnormal Lab Results - Last 24 Hours (Table) 09/18/16 09/18/16 09/18/16 Range/Units 17:58 17:58 23:25 RBC 2.71 L 2.84 L (3.80-5.40) m/uL Hgb 9.1 L 9.3 L (11.4-16.0) gm/dL Hct 27.4 L 28.5 L (34.0-46.0) % MCV 101.1 H 100.4 H (80.0-100.0) fL Plasma Lactic Acid Theodore <0.5 L (0.7-2.0) mmol/L 09/19/16 Range/Units 06:29 RBC 2.84 L (3.80-5.40) m/uL Hgb 9.4 L (11.4-16.0) gm/dL Hct 28.7 L (34.0-46.0) % MCV 100.9 H (80.0-100.0) fL Plasma Lactic Acid Theodore (0.7-2.0) mmol/L Assessment and Plan (1) Abdominal pain Narrative/Plan: 55 year old female status post EGD colonoscopy with development of severe left- sided abdominal pain radiating to her shoulder CT imaging reporting free fluid in the abdomen difficult to exclude pneumoperitoneum.Other differentials to consider is splenocolic ligament injury possible splenic subcapsular injury. Status: Acute Plan: 1. General surgery following. Diet per surgery. 2. Discharge per medicine and surgery. Assessment and plan of care discussed with Dr. Washington.
[2016-09-19 12:08] LABS: Basophils % (A) 0 %; CH 33.2; CHCM 33.2; Eosinophils % (A) 1 %; HCT 28.6 % (34.0-46.0); HDW 2.29; HGB 9.5 gm/dL (11.4-16.0); Luc # (Auto) 0.13; Luc % (Auto) 2; Lymphocytes # (A) 1.6 k/uL (1.0-4.8); Lymphocytes % (A) 21 %; MCH 33.2 pg (25.0-35.0); MCV 100.6 fL (80.0-100.0); Mean Platelet Volume 7.5; Monocytes # (A) 0.3 k/uL (0-1.0); Monocytes % (A) 4 %; Neutrophils # (A) 5.4 k/uL (1.3-7.7); Neutrophils % (A) 72 %; RBC 2.85 m/uL (3.80-5.40); WBC 7.5 k/uL (3.8-10.6); WBC (Perox) 8.24
--- NOTE | 2016-09-19 15:14 | P.PN ---
Subjective 55-year-old female one of Dr. Matthews's patient who has been struggling with severe GERD heartburn and hiatal hernia causing patient to enforce herself to throw up to be disease and relief from her discomfort and pain specially after food. Patient was scheduled for elective EGD with Dr. Newby along with colonoscopy which was performed on 09/17/2016 successfully finding were consistent with severe GERD and have a hernia with mild gastritis colonoscopy was not significant at all. Patient was in recovery for a period of time with mild hypotension and discomfort finally made it home developed to have significant generalized abdominal pain with nausea or pain become 8-9 out of 10 which much worsening than expected ended up coming to the emergency department at [facility] where was seen and evaluated. Her CAT scan of the abdomen with IV contrast with no oral came back with slightly bit positive finding consistent with fluid in the peritoneum area with no free air but still suspicious for perforation. Dr. Epstein was called before the admission and agreed to have patient on pain management hydration repeat another x-ray and evaluated in the morning. Patient was seen today by GI and general surgery review CAT scan with radiology for better view to repeat another CAT scan with IV contrast in 24 hours to see if there is any progression or any consistent problem with pneumoperitoneum consistent with perforation. Continue nothing by mouth for now with her pain and symptoms are slightly but better in the last few hours. 09/19: Patient is followed by spinning supervisor and Dr. Lucian Akhtar. She is on a regular diet and tolerating this. Patient will be monitored overnight with plan for discharge for tomorrow. Objective - Vital Signs Vital signs: Vital Signs Temp 98.5 F 09/19/16 07:00 Pulse 94 09/19/16 08:00 Resp 16 09/19/16 08:00 BP 137/82 09/19/16 07:00 Pulse Ox 94 L 09/19/16 07:00 Intake & Output 09/18/16 09/19/16 09/19/16 18:59 06:59 18:59 Intake Total 960 1320 240 Balance 960 1320 240 Intake: IV 960 Sodium Chloride 0.9% 1, 960 000 ml @ 120 mls/hr IV . Q8H20M [facility] Rx#:[id number] Intake, IV Titration 1320 Amount Lactated Ringers 1,000 ml 1320 @ 120 mls/hr IV .Q8H20M [facility] Rx#:[id number] Oral 240 Other: Voiding Method Toilet Toilet # Voids 2 - Exam General appearance: no average body habitus, no cooperative, disheveled, mild distress, no morbidly obese, no no acute distress, no obese, no severe distress , no thin - EENT Eyes: no abnormal pupil, no anicteric sclerae, no disc margins sharp, no edentulous, no EOMI, no PERRLA, no fundus normal, no photophobia, no dentition normal, no poor dentition, no ptosis, no scleral icterus, normal appearance ENT: no hard of hearing, no hearing grossly normal, no NA/AT, no normal oropharynx, no other, pharyngeal erythema, no thrush, no tonsillar exudates, no tonsillar swelling Ears: bilateral: normal - Neck Neck: no lymphadenopathy, normal ROM, no other, no rigidity, no stridor, no thyromegaly Carotids: bilateral: upstroke normal Thyroid: bilateral: normal size - Respiratory Respiratory: bilateral: CTA, diminished - Cardiovascular Rhythm: regular Heart sounds: normal: S1, S2 Abnormal Heart Sounds: systolic murmur - Gastrointestinal General gastrointestinal: no absent bowel sounds, decreased bowel sounds, distended, no hepatomegaly, no hyperactive bowel sounds, no normal bowel sounds , no organomegaly, no rigid, no scaphoid, soft, no splenomegaly, tenderness, no umbilical hernia, no ventral hernia - Integumentary Integumentary: no calor, no cellulitis, no cyanotic, no decreased turgor, no flushed, no jaundiced, normal, no normal turgor, pale, rash, no ulcer - Neurologic Neurologic: CNII-XII intact - Musculoskeletal Musculoskeletal: gait normal, generalized weakness, strength equal bilaterally, no right sided weakness, no left sided weakness - Psychiatric Psychiatric: A&O x's 3, appropriate affect - Labs CBC & Chem 7: 09/19/16 11:49 09/18/16 06:49 Labs: Abnormal Lab Results - Last 24 Hours (Table) 09/18/16 09/18/16 09/18/16 Range/Units 17:58 17:58 23:25 RBC 2.71 L 2.84 L (3.80-5.40) m/uL Hgb 9.1 L 9.3 L (11.4-16.0) gm/dL Hct 27.4 L 28.5 L (34.0-46.0) % MCV 101.1 H 100.4 H (80.0-100.0) fL Plasma Lactic Acid Theodore <0.5 L (0.7-2.0) mmol/L 09/19/16 09/19/16 Range/Units 06:29 11:49 RBC 2.84 L 2.85 L (3.80-5.40) m/uL Hgb 9.4 L 9.5 L (11.4-16.0) gm/dL Hct 28.7 L 28.6 L (34.0-46.0) % MCV 100.9 H 100.6 H (80.0-100.0) fL Plasma Lactic Acid Theodore (0.7-2.0) mmol/L Assessment and Plan Plan: 1 severe abdominal pain: Shortly after colonoscopy and EGD with suspicion for perforation was not confirmed on her original CAT scan. Patient will stay on conservative management surgical consultation and GI consultation continue hydration pain management repeat another x-ray and possible another CAT scan in 24 hours. Continue nothing by mouth for now. 2 severe GERD and large Hernia: Patient still symptomatic continue patient on pantoprazole IV for now ration will discuss probably other option with her symptom being severely weight is with the general surgeon as an outpatient. 3 hyperlipidemia: on simvastatin. 4 ADD: Has been on Adderall resume medication as she has patient able to medication. 5 migraine: Has been on Topamax with secondary prevention doing very well so far. 6 smoking: Smoking cessation was addressed patient will be on nicotine patch 14 mg daily. 7 GI prophylaxis: Will be on pantoprazole. 8 DVT prophylaxis: Continue patient on Venodyne boots and knee-high FIONA hose. CODE STATUS: Full code. Discharge plan: Return home tomorrow Impression and plan of care have been directed as dictated by the signing physician. Hodan Hensley nurse practitioner acting as scribe for signing physician. Time with Patient: Greater than 30
[2016-09-20] MEDS: LACTATED RINGERS 1,000 ML IV SCH ×2 (04:52→21:06)
[2016-09-20 07:28] LABS: Basophils % (A) 0 %; CH 33.3; CHCM 33.6; Eosinophils # (A) 0.1 k/uL (0-0.7); Eosinophils % (A) 1 %; HCT 27.2 % (34.0-46.0); HDW 2.27; Luc # (Auto) 0.09; Luc % (Auto) 1; Lymphocytes # (A) 1.2 k/uL (1.0-4.8); Lymphocytes % (A) 19 %; MCH 33.1 pg (25.0-35.0); MCHC 33.2 g/dL (31.0-37.0); MCV 99.9 fL (80.0-100.0); Mean Platelet Volume 7.1; Monocytes # (A) 0.2 k/uL (0-1.0); Monocytes % (A) 3 %; Neutrophils % (A) 76 %; RBC 2.73 m/uL (3.80-5.40); RDW 13.1 % (11.5-15.5); WBC 6.6 k/uL (3.8-10.6); WBC (Perox) 6.82
[2016-09-20] MEDS: HYDROmorphone 1 MG/ML 1 ML SYRINGE IVP PRN (07:53)
[2016-09-20 07:55] LABS: ALT 37 U/L (9-52); AST 24 U/L (14-36); Alkaline Phosphatase 62 U/L (38-126); Anion Gap 8 mmol/L; Blood Urea Nitrogen 6 mg/dL (7-17); Calcium 8.5 mg/dL (8.4-10.2); Carbon Dioxide 24 mmol/L (22-30); Chloride 109 mmol/L (98-107); Glucose 88 mg/dL (74-99); Non-African American GFR(MDRD) >60 (>60 ml/min/1.73 sqM); Potassium 3.6 mmol/L (3.5-5.1); Sodium 141 mmol/L (137-145); Total Bilirubin 0.6 mg/dL (0.2-1.3); Total Protein 5.5 g/dL (6.3-8.2)
[2016-09-20] MEDS: NICOTINE 14MG/24HR PATCH TRANSDERM SCH (07:56)
[2016-09-20] MEDS: PANTOPRAZOLE 40 MG TABLET PO SCH (07:56)
[2016-09-20] MEDS ORDERED: HYDROmorphone 1 MG/ML 1 ML SYRINGE IVP PRN (08:22)
--- NOTE | 2016-09-20 12:33 | P.PN ---
Subjective 55-year-old female being seen on rounds this morning with the surgeon Dr. Epstein. Patient reports there is a significant improvement in the pain involving the left shoulder with decreased pain in the right lower quadrant as well. Patient states the area feels tender but has decreased and severe patient denies any nausea vomiting denies any shortness of breath. Patient is status post EGD and colonoscopy done on September 17 Dr. Newby. Patient stated that she had the procedure done around 11:30 in the morning was discharged around 3 in the afternoon. Patient stated when she got home she developed left shoulder pain with right lower quadrant pain. Patient stated the pain became more intense was able to pass gas but felt a nausea sensation with the pain. Patient stated the pain came in waves. Patient stated that she became concerned and called Dr. Newby advised patient come to the emergency room to be evaluated EGD and colonoscopy were part of a workup the patient's history of esophageal reflux and hiatal hernia. . Surgical consultation was obtained.. Patient was seen by Dr. Epstein with concerns of a possible splenocolic ligament subcapsular splenic injury. . Repeat CT scan abdomen and pelvis reported small amount of free fluid within the abdomen decreasing previous study with persistent area of decreased attenuation in the posterior aspect of the spleen. repeat CAT scan shows findings again consistent with a posterior splenic subcapsular hematoma most likely. There does not appear to be any increase in free fluid in the peritoneal cavity. The admitting hemoglobin was 11.8 the repeat hemoglobin at 7 AM on the was 9. On the morning of September 20 patient stated the pain in the left shoulder and right abdomen was improving patient remained hemodynamically stable Objective - Vital Signs Vital signs: Vital Signs Temp 98.2 F 09/20/16 08:06 Pulse 87 09/20/16 08:06 Resp 15 09/20/16 08:06 BP 139/86 09/20/16 08:06 Pulse Ox 97 09/20/16 08:06 Intake & Output 09/19/16 09/20/16 09/20/16 18:59 06:59 18:59 Intake Total 480 1380 Balance 480 1380 Weight 65.771 kg Intake: Intake, IV Titration 1080 Amount Lactated Ringers 1,000 ml 1080 @ 120 mls/hr IV .Q8H20M [facility] Rx#:[id number] Oral 480 300 Other: Voiding Method Toilet Toilet Toilet # Voids 2 1 - Exam Physical exam 55-year-old female resting comfortably in bed appears in no acute distress this morning spouse at bedside updated on plan of care questions answered by the surgeon Dr. Epstein Lungs posterior fine crackles left lower lobe otherwise clear no shortness of breath no cough noted conversational dyspnea noted Heart S1-S2 audible and regular denying chest pain Abdomen soft not distended no reports the nausea vomiting no palpable organomegaly no facial grimacing with palpitation to the abdominal wall patient states there's some tenderness to the right lower quadrant has improved passing gas no stool urinating no difficulty extremities no edema noted - Labs CBC & Chem 7: 09/20/16 07:07 09/20/16 07:07 Labs: Abnormal Lab Results - Last 24 Hours (Table) 09/19/16 09/20/16 09/20/16 Range/Units 11:49 07:07 07:07 RBC 2.85 L 2.73 L (3.80-5.40) m/uL Hgb 9.5 L 9.0 L (11.4-16.0) gm/dL Hct 28.6 L 27.2 L (34.0-46.0) % MCV 100.6 H (80.0-100.0) fL Chloride 109 H (98-107) mmol/L BUN 6 L (7-17) mg/dL Total Protein 5.5 L (6.3-8.2) g/dL Albumin 3.0 L (3.5-5.0) g/dL Assessment and Plan Plan: Impression Present on admission right lower quadrant pain left shoulder pain status post EGD and colonoscopy History of severe esophageal reflux with a large hiatal hernia Computed tomography scan with stable fluid in the peritoneal cavity suspect, posterior splenic subcapsular hematoma Plan repeat a hemoglobin at 1:00 today if stable from a surgical perspective patient could be discharged defer to the timing of the discharge to medical service Outpatient follow-up as directed Patient has been advised if there is a change in the pain pattern to return to the nearest emergency room the patient was discharged The above dictated assessment and findings were discussed with dr Anna epstein Impression and the plan of care have been dictated as directed. Dionne Sandy nurse practitioner acting as a scribe for Dr. Henry Time with Patient: Greater than 30
[2016-09-20 13:49] LABS: Basophils % (A) 0 %; CH 33.2; Eosinophils # (A) 0.1 k/uL (0-0.7); Eosinophils % (A) 1 %; HCT 27.7 % (34.0-46.0); HDW 2.28; HGB 9.2 gm/dL (11.4-16.0); Luc % (Auto) 1; Lymphocytes # (A) 1.6 k/uL (1.0-4.8); Lymphocytes % (A) 22 %; MCH 33.4 pg (25.0-35.0); MCV 101.2 fL (80.0-100.0); Monocytes # (A) 0.3 k/uL (0-1.0); Monocytes % (A) 4 %; Neutrophils # (A) 5.2 k/uL (1.3-7.7); Neutrophils % (A) 72 %; RBC 2.74 m/uL (3.80-5.40); WBC 7.2 k/uL (3.8-10.6); WBC (Perox) 7.23
--- NOTE | 2016-09-20 14:52 | P.PN ---
Subjective 55-year-old female one of Dr. Matthews's patient who has been struggling with severe GERD heartburn and hiatal hernia causing patient to enforce herself to throw up to be disease and relief from her discomfort and pain specially after food. Patient was scheduled for elective EGD with Dr. Newby along with colonoscopy which was performed on 09/17/2016 successfully finding were consistent with severe GERD and have a hernia with mild gastritis colonoscopy was not significant at all. Patient was in recovery for a period of time with mild hypotension and discomfort finally made it home developed to have significant generalized abdominal pain with nausea or pain become 8-9 out of 10 which much worsening than expected ended up coming to the emergency department at [facility] where was seen and evaluated. Her CAT scan of the abdomen with IV contrast with no oral came back with slightly bit positive finding consistent with fluid in the peritoneum area with no free air but still suspicious for perforation. Dr. Epstein was called before the admission and agreed to have patient on pain management hydration repeat another x-ray and evaluated in the morning. Patient was seen today by GI and general surgery review CAT scan with radiology for better view to repeat another CAT scan with IV contrast in 24 hours to see if there is any progression or any consistent problem with pneumoperitoneum consistent with perforation. Continue nothing by mouth for now with her pain and symptoms are slightly but better in the last few hours. 09/19: Patient is followed by sales technician and Dr. Lucian Akhtar. She is on a regular diet and tolerating this. Patient will be monitored overnight with plan for discharge for tomorrow. 09/20: Surgeon is requesting that the patient stay another night and monitor hemoglobin. If this is above 9 patient will be discharged home tomorrow. She is eating and drinking without difficulty. She is passing gas. Her pain is less than 2/10. Objective - Vital Signs Vital signs: Vital Signs Temp 98.1 F 09/20/16 14:21 Pulse 88 09/20/16 14:21 Resp 16 09/20/16 14:21 BP 145/80 09/20/16 14:21 Pulse Ox 95 09/20/16 14:21 Intake & Output 09/19/16 09/20/16 09/20/16 18:59 06:59 18:59 Intake Total 480 1380 1080 Balance 480 1380 1080 Weight 65.771 kg Intake: Intake, IV Titration 1080 480 Amount Lactated Ringers 1,000 ml 1080 480 @ 120 mls/hr IV .Q8H20M [facility] Rx#:[id number] Oral 480 300 600 Other: Voiding Method Toilet Toilet Toilet # Voids 2 1 1 - Exam General appearance: no average body habitus, no cooperative, disheveled, mild distress, no morbidly obese, no no acute distress, no obese, no severe distress , no thin - EENT Eyes: no abnormal pupil, no anicteric sclerae, no disc margins sharp, no edentulous, no EOMI, no PERRLA, no fundus normal, no photophobia, no dentition normal, no poor dentition, no ptosis, no scleral icterus, normal appearance ENT: no hard of hearing, no hearing grossly normal, no NA/AT, no normal oropharynx, no other, pharyngeal erythema, no thrush, no tonsillar exudates, no tonsillar swelling Ears: bilateral: normal - Neck Neck: no lymphadenopathy, normal ROM, no other, no rigidity, no stridor, no thyromegaly Carotids: bilateral: upstroke normal Thyroid: bilateral: normal size - Respiratory Respiratory: bilateral: CTA, diminished - Cardiovascular Rhythm: regular Heart sounds: normal: S1, S2 Abnormal Heart Sounds: systolic murmur - Gastrointestinal General gastrointestinal: no absent bowel sounds, decreased bowel sounds, distended, no hepatomegaly, no hyperactive bowel sounds, no normal bowel sounds , no organomegaly, no rigid, no scaphoid, soft, no splenomegaly, tenderness, no umbilical hernia, no ventral hernia - Integumentary Integumentary: no calor, no cellulitis, no cyanotic, no decreased turgor, no flushed, no jaundiced, normal, no normal turgor, pale, rash, no ulcer - Neurologic Neurologic: CNII-XII intact - Musculoskeletal Musculoskeletal: gait normal, generalized weakness, strength equal bilaterally, no right sided weakness, no left sided weakness - Psychiatric Psychiatric: A&O x's 3, appropriate affect - Labs CBC & Chem 7: 09/20/16 13:16 09/20/16 07:07 Labs: Abnormal Lab Results - Last 24 Hours (Table) 09/20/16 09/20/16 09/20/16 Range/Units 07:07 07:07 13:16 RBC 2.73 L 2.74 L (3.80-5.40) m/uL Hgb 9.0 L 9.2 L (11.4-16.0) gm/dL Hct 27.2 L 27.7 L (34.0-46.0) % MCV 101.2 H (80.0-100.0) fL Chloride 109 H (98-107) mmol/L BUN 6 L (7-17) mg/dL Total Protein 5.5 L (6.3-8.2) g/dL Albumin 3.0 L (3.5-5.0) g/dL Assessment and Plan Plan: 1 severe abdominal pain: Shortly after colonoscopy and EGD with suspicion for perforation was not confirmed on her original CAT scan. Patient will stay on conservative management surgical consultation and GI consultation continue hydration pain management repeat another x-ray and possible another CAT scan in 24 hours. Continue nothing by mouth for now. 2 severe GERD and large Hernia: Patient still symptomatic continue patient on pantoprazole IV for now ration will discuss probably other option with her symptom being severely weight is with the general surgeon as an outpatient. 3 hyperlipidemia: on simvastatin. 4 ADD: Has been on Adderall resume medication as she has patient able to medication. 5 migraine: Has been on Topamax with secondary prevention doing very well so far. 6 smoking: Smoking cessation was addressed patient will be on nicotine patch 14 mg daily. 7 GI prophylaxis: Will be on pantoprazole. 8 DVT prophylaxis: Continue patient on Venodyne boots and knee-high FIONA hose. CODE STATUS: Full code. Discharge plan: Return home tomorrow Impression and plan of care have been directed as dictated by the signing physician. Hodan Hensley nurse practitioner acting as scribe for signing physician. Time with Patient: Greater than 30
[2016-09-20] MEDS ORDERED: HYDROcodone/APAP 5-325MG 1 EACH TAB PO STA (21:02)
--- NOTE | 2016-09-20 21:02 | P.PN ---
Subjective Principal diagnosis: Splenic injury following colonoscopy The patient is status post colonoscopy with splenic injury. She reports and moderate improvement of her pain. Her hemoglobin has been stable over the last 72 hours. Her 's bedside. She is eager to go home. She is taking oral pain meds as needed. She has difficulty with taking deep breaths. Objective - Vital Signs Vital signs: Vital Signs Temp 98.1 F 09/20/16 14:21 Pulse 88 09/20/16 14:21 Resp 16 09/20/16 14:21 BP 145/80 09/20/16 14:21 Pulse Ox 95 09/20/16 14:21 Intake & Output 09/20/16 09/20/16 09/21/16 06:59 18:59 06:59 Intake Total 1380 1260 Balance 1380 1260 Intake: Intake, IV Titration 1080 480 Amount Lactated Ringers 1,000 ml 1080 480 @ 120 mls/hr IV .Q8H20M [facility] Rx#:[id number] Oral 300 780 Other: Voiding Method Toilet Toilet # Voids 1 1 - Exam GENERAL: Well developed and in no acute distress. Pleasant. HEENT: No sclera icterus. Extraocular movements grossly intact. Moist buccal mucosa. Head is atraumatic, normocephalic. Hears conversational speech. No nasal drainage. NECK: Supple without lymphadenopathy. No JV distention. CHEST: Non-labored respirations and equal bilateral excursions. CARDIOVASCULAR: Regular rate and rhythm. Palpable 2+ radial pulses. ABDOMEN: Soft. Nondistended. No peritoneal signs. MUSCULOSKELETAL: No clubbing, cyanosis or edema. NEUROLOGIC: No focal or lateralizing signs. PSYCH: Appropriate affect. Alert and oriented to person, place and time. - Labs CBC & Chem 7: 09/20/16 13:16 09/20/16 07:07 Labs: Abnormal Lab Results - Last 24 Hours (Table) 09/20/16 09/20/16 09/20/16 Range/Units 07:07 07:07 13:16 RBC 2.73 L 2.74 L (3.80-5.40) m/uL Hgb 9.0 L 9.2 L (11.4-16.0) gm/dL Hct 27.2 L 27.7 L (34.0-46.0) % MCV 101.2 H (80.0-100.0) fL Chloride 109 H (98-107) mmol/L BUN 6 L (7-17) mg/dL Total Protein 5.5 L (6.3-8.2) g/dL Albumin 3.0 L (3.5-5.0) g/dL Assessment and Plan (1) Anemia due to blood loss, acute Status: Acute (2) S/P colonoscopy Status: Acute (3) Left upper quadrant pain Status: Acute (4) Closed injury of spleen Status: Acute (5) Atelectasis of left lung Status: Acute Plan: 1. Recommend incentive spirometry with history of likely atelectasis. 2. Recommend pain medications orally as needed. 3. Patient is clinically stable may likely be discharged home tomorrow. 4. Follow-up as outpatient with primary care provider with repeat hemoglobins. 5. Recommend incentive spirometer for home. 6. Education avoiding any further injury to the abdomen was reviewed in detail including refraining from sports activity, vigorous sexual activity, yoga, pets along the abdomen. 7. All of their questions were addressed as well.
[2016-09-21] MEDS: HYDROcodone/APAP 5-325MG 1 EACH TAB PO PRN ×2 (04:15→08:53)
[2016-09-21 07:20] LABS: Basophils % (A) 0 %; CH 33.5; CHCM 33.9; Eosinophils % (A) 1 %; HCT 29.1 % (34.0-46.0); HDW 2.26; HGB 9.9 gm/dL (11.4-16.0); Luc # (Auto) 0.11; Luc % (Auto) 2; Lymphocytes # (A) 0.9 k/uL (1.0-4.8); Lymphocytes % (A) 15 %; MCH 33.8 pg (25.0-35.0); MCV 99.4 fL (80.0-100.0); Mean Platelet Volume 7.1; Monocytes # (A) 0.2 k/uL (0-1.0); Monocytes % (A) 4 %; Neutrophils # (A) 4.9 k/uL (1.3-7.7); Neutrophils % (A) 79 %; RBC 2.93 m/uL (3.80-5.40); RDW 13.1 % (11.5-15.5); WBC 6.2 k/uL (3.8-10.6); WBC (Perox) 6.52
[2016-09-21] MEDS: NICOTINE 14MG/24HR PATCH TRANSDERM SCH (07:24)
[2016-09-21] MEDS: PANTOPRAZOLE 40 MG TABLET PO SCH (07:24)
[2016-09-21 09:06] VITALS: BP 119/81; PULSE 80; RESP 15; TEMP 98.5
--- NOTE | 2016-09-21 20:50 | DS ---
DATE OF ADMISSION: 10/03/2016 DATE OF DISCHARGE: ADMISSION DIAGNOSES: 1. Abdominal pain. 2. Status post EGD. 3. Questionable perforated gut. 4. Gastroesophageal reflux disease. 5. Hyperlipidemia. DISCHARGE DIAGNOSES: Abdominal pain. CONSULTATIONS: 1. General Surgery. 2. GI. HOSPITAL COURSE: 55-year-old female presented for upper endoscopy for peptic ulcer disease and acid reflux. The patient developed severe abdominal pain after the operation. Evaluated by Surgery who felt that the patient was hemodynamically stable and ( ) from their standpoint for discharge. The patient was kept overnight. Pain was under good control. The patient requested [place] this morning. Plan discussed with her and her , to return to the hospital if she experienced any decline in her condition or worsening of her abdominal pain. The patient was aware that she needs to follow up with her primary care physician in 1 to 2 days after discharge. The patient was discharged in stable condition.
--- NOTE | 2016-10-01 15:17 | P.DS ---
Providers Date of admission: 09/17/16 21:52 Expected date of discharge: 09/21/16 Attending physician: Erik Tam Primary care physician: Tiffanie Lara [facility] Course: 55-year-old female one of Dr. Matthews's patient who has been struggling with severe GERD heartburn and hiatal hernia causing patient to enforce herself to throw up to be disease and relief from her discomfort and pain specially after food. Patient was scheduled for elective EGD with Dr. Newby along with colonoscopy which was performed on 09/17/2016 successfully finding were consistent with severe GERD and have a hernia with mild gastritis colonoscopy was not significant at all. Patient was in recovery for a period of time with mild hypotension and discomfort finally made it home developed to have significant generalized abdominal pain with nausea or pain become 8-9 out of 10 which much worsening than expected ended up coming to the emergency department at [facility] where was seen and evaluated. Her CAT scan of the abdomen with IV contrast with no oral came back with slightly bit positive finding consistent with fluid in the peritoneum area with no free air but still suspicious for perforation. Dr. Epstein was called before the admission and agreed to have patient on pain management hydration repeat another x-ray and evaluated in the morning. Patient was seen today by GI and general surgery review CAT scan with radiology for better view to repeat another CAT scan with IV contrast in 24 hours to see if there is any progression or any consistent problem with pneumoperitoneum consistent with perforation. Continue nothing by mouth for now with her pain and symptoms are slightly but better in the last few hours. 09/19: Patient is followed by hair assistant and Dr. Lucian Akhtar. She is on a regular diet and tolerating this. Patient will be monitored overnight with plan for discharge for tomorrow. 09/20: Surgeon is requesting that the patient stay another night and monitor hemoglobin. If this is above 9 patient will be discharged home tomorrow. She is eating and drinking without difficulty. She is passing gas. Her pain is less than 2/10. 09/21: Issues pain is currently controlled. Patient is eager to go home. Patient will be discharged home today in stable condition. Discharge diagnoses: 1 severe abdominal pain: Shortly after colonoscopy and EGD with suspicion for splenic injury 2 severe GERD and large Hernia: 3 hyperlipidemia: 4 ADD: 5 migraine: 6 smoking: Smoking cessation Discharge plan: Return home Impression and plan of care have been directed as dictated by the signing physician. Hodan Hensley nurse practitioner acting as scribe for signing physician. CC: Dr. Lara Patient Condition at Discharge: Good Plan - Discharge Summary Discharge Medication List Dextroamphetamine/Amphetamine [Adderall Xr] 30 mg PO DAILY 07/31/14 [History] Omeprazole 40 mg PO DAILY 07/31/14 [History] Simvastatin 20 mg PO HS 07/31/14 [History] Aspirin [Adult Low Dose Aspirin EC] 162 mg PO HS 09/12/16 [History] Topiramate 50 mg PO HS 09/12/16 [History] HYDROcodone/APAP 7.5-325MG [[place] 7.5-325] 1 tab PO Q4-6H PRN 09/26/16 [History] Vit C/E/Zn/Coppr/Lutein/Zeaxan [Preservision Areds 2 Softgel] 2 cap PO DAILY [History] Follow up Appointment(s)/Referral(s): Rambo Davenport MD [STAFF PHYSICIAN] - 1 Week (Need to go to Primary Care first and get refferal per office. ) Elizabeth Patterson MD [STAFF PHYSICIAN] - 09/26/16 11:15 am Tiffanie Lara MD [Primary Care Provider] - 09/27/16 1:30 pm () Ambulatory/Diagnostic Orders: Complete Blood Count w/diff [LAB.AMB] Time Frame: 09/25/16, Location: Determined By Patient Complete Blood Count w/diff [LAB.AMB] Time Frame: 09/25/16, Location: Determined By Patient Activity/Diet/Wound Care/Special Instructions: No driving for 7 days Repeat a CBC 72 hours after discharge follow-up with Dr. Schulz for results No physical activity for 6 weeks no heavy lifting over 10 pounds for 6 weeks No contact sports for 3 months Return to the emergency room if any chest or abdominal pain occurs Discharge Disposition: HOME SELF-CARE
== END 2016-09-21 11:25 | disposition home or self-care (01) ==
LOC: EC 16:46 → 3SUR 21:52
PROVIDERS: ADMIT Internal Medicine Geriatric Medicine; ATTEND Internal Medicine Geriatric Medicine
DX: G89.18 Other acute postprocedural pain (principal); R10.84 Generalized abdominal pain; S36.00XA Unspecified injury of spleen, initial encounter; D62 Acute posthemorrhagic anemia; J98.11 Atelectasis; E78.5 Hyperlipidemia, unspecified; F17.210 Nicotine dependence, cigarettes, uncomplicated; F90.9 Attention-deficit hyperactivity disorder, unspecified type; G43.909 Migraine, unspecified, not intractable, without status migrainosus; K21.9 Gastro-esophageal reflux disease without esophagitis; K29.60 Other gastritis without bleeding; K44.9 Diaphragmatic hernia without obstruction or gangrene; K57.30 Diverticulosis of large intestine without perforation or abscess without bleeding; Y84.8 Other medical procedures as the cause of abnormal reaction of the patient, or of later complication, without mention of misadventure at the time of the procedure; Z79.82 Long term (current) use of aspirin; Z79.899 Other long term (current) drug therapy
CPT/HCPCS: 36415; 94760; 93005; 80053 ×3; 82150; 82550; 82553; 83605; 83690; 83735; 84484; 85025 ×5; 85610; 85730; 74020; 99285; 74177 ×2; 96374; 96375; G0378 ×5; J2270; J2360; J1170 ×4; Q9967 ×2; C9113 ×2; 43239; 88305; 88342; 96361; 96376; 99153

== ENCOUNTER → 2016-09-25 | Outpatient (CLI) | payer BC ==
[2016-09-25 09:01] LABS: Basophils % (A) 0 %; CH 33.4; CHCM 32.6; Eosinophils # (A) 0.1 k/uL (0-0.7); Eosinophils % (A) 1 %; HCT 35.3 % (34.0-46.0); HDW 2.46; HGB 11.3 gm/dL (11.4-16.0); Luc # (Auto) 0.18; Luc % (Auto) 2; Lymphocytes # (A) 1.4 k/uL (1.0-4.8); Lymphocytes % (A) 13 %; MCH 33.1 pg (25.0-35.0); MCHC 32.1 g/dL (31.0-37.0); MCV 103.2 fL (80.0-100.0); Macrocytosis Slight; Mean Platelet Volume 7.7; Monocytes # (A) 0.5 k/uL (0-1.0); Monocytes % (A) 5 %; Neutrophils # (A) 8.3 k/uL (1.3-7.7); Neutrophils % (A) 80 %; RBC 3.42 m/uL (3.80-5.40); RDW 13.1 % (11.5-15.5); WBC 10.5 k/uL (3.8-10.6); WBC (Perox) 11.38
== END | disposition home or self-care (01) ==
LOC: LABWHC1 08:23
DX: S36.00XA Unspecified injury of spleen, initial encounter (principal); D62 Acute posthemorrhagic anemia
CPT/HCPCS: 36415; 85025

== ENCOUNTER 2016-09-26 11:45 | Observation (INO) | payer BC ==
[2016-09-26] MEDS ORDERED: HYDROmorphone 1 MG/ML 1 ML SYRINGE IVP STA (12:13)
[2016-09-26] MEDS ORDERED: SODIUM CHLORIDE 0.9% 1,000 ML IV STA (12:13)
[2016-09-26] MEDS ORDERED: ONDANSETRON 4 MG/2 ML VIAL IVP STA (12:13)
--- NOTE | 2016-09-26 12:16 | ED ---
General Adult HPI - General Chief complaint: Abdominal Pain Stated complaint: SENT BY DR DESIREE MORENO, PAIN IN RT SIDE POST OP Time Seen by Provider: 09/26/16 12:02 Source: patient, RN notes reviewed Mode of arrival: ambulatory Limitations: no limitations - History of Present Illness Initial comments: Patient a 55-year-old female who presents emergency room today with chief complaint of needing a CAT scan of her abdomen. Patient does admit that after colonoscopy approximately 10 days ago she had increased pain to the left side of her abdomen and in the left shoulder. She states she was diagnosed with a splenic laceration. States she was admitted to the hospital and observed and recently went home just 5 days ago. Patient states she was at recheck today with her surgeon and has had increased pain on the right upper quadrant that started yesterday. States she was advised coming to emergency room for CAT scan. Patient does admit to pain right upper quadrant is worse when she lays down. Worse when she takes deep breath. Denies any other complaints associated symptoms. Patient denies any recent fever, chills, shortness of breath, chest pain, back pain, numbness or tingling, dysuria or hematuria, constipation or diarrhea, headaches or visual changes, or any other complaints. - Related Data Home Medications Medication Instructions Recorded Confirmed Dextroamphetamine/Amphetamine 30 mg PO DAILY 07/31/14 09/26/16 [Adderall Xr] Omeprazole 40 mg PO DAILY 07/31/14 09/26/16 Simvastatin 20 mg PO HS 07/31/14 09/26/16 Aspirin [Adult Low Dose Aspirin EC] 162 mg PO HS 09/12/16 09/26/16 Topiramate 50 mg PO HS 09/12/16 09/26/16 HYDROcodone/APAP 7.5-325MG [[place] 1 tab PO Q4-6H PRN 09/26/16 09/26/16 7.5-325] Vit C/E/Zn/Coppr/Lutein/Zeaxan 2 cap PO DAILY 09/26/16 09/26/16 [Preservision Areds 2 Softgel] Allergies Allergy/AdvReac Type Severity Reaction Status Date / Time No Known Allergies Allergy Verified 09/26/16 11:59 Review of Systems ROS Statement: Those systems with pertinent positive or pertinent negative responses have been documented in the HPI. ROS Other: All systems not noted in ROS Statement are negative. Past Medical History Past Medical History: GERD/Reflux, Hyperlipidemia, Neurologic Disorder Additional Past Medical History / Comment(s): MIGRAINES History of Any Multi-Drug Resistant Organisms: None Reported Past Surgical History: Appendectomy, Orthopedic Surgery Additional Past Surgical History / Comment(s): left foot SX. COLONOSCOPY, EGD Past Anesthesia/Blood Transfusion Reactions: No Reported Reaction Past Psychological History: ADD/ADHD Smoking Status: Current every day smoker Past Alcohol Use History: Occasional Past Drug Use History: None Reported - Past Family History Mother Family Medical History: No Reported History General Exam - General Exam Comments Initial Comments: General: The patient is awake and alert, in no distress, and does not appear acutely ill. Eye: Pupils are equal, round and reactive to light, extra-ocular movements are intact. No nystagmus. There is normal conjunctiva bilaterally. No signs of icterus. Ears, nose, mouth and throat: There are moist mucous membranes and no oral lesions. Neck: The neck is supple, there is no tenderness or JVD. Cardiovascular: There is a regular rate and rhythm. No murmur, rub or gallop is appreciated. Respiratory: Lungs are clear to auscultation, respirations are non-labored, breath sounds are equal. No wheezes, stridor, rales, or rhonchi. Gastrointestinal: Normal appearance of the abdomen. Normal bowel sounds. Soft on palpation. Patient does have tenderness right upper quadrant. No rebound tenderness. No guarding. No CVA tenderness. Musculoskeletal: Normal ROM, no tenderness. Strength 5/5. Sensation intact. Pulses equal bilaterally 2+. Neurological: A&O x 3. CN II-XII intact, There are no obvious motor or sensory deficits. Coordination appears grossly intact. Speech is normal. Skin: Skin is warm and dry and no rashes or lesions are noted. Psychiatric: Cooperative, appropriate mood & affect, normal judgment. Limitations: no limitations Course Vital Signs 09/26/16 09/26/16 11:48 14:28 Temperature 97.0 F L 97.5 F L Pulse Rate 96 70 Respiratory 17 18 Rate Blood Pressure 162/96 170/92 O2 Sat by Pulse 99 98 Oximetry Medical Decision Making - Medical Decision Making Patient's CAT scan reviewed and does show 1. Bibasilar atelectasis. 2. Resolution of the patient's right effusion. 3. Small amount of free fluid within the abdomen, decreased from previous. 4. Persistent area of decreased attenuation in the posterior aspect of the spleen, slightly larger than on previous study. 5. Minimal, uncomplicated diverticulosis of the sigmoid colon. 6. Mild facet arthropathy in the lower lumbar facets. 7. Minimal distended, fluid-filled loops of the distal small bowel. Patient's CAT scan was discussed with attending physician Dr. Ji who did discuss the case with on-call surgical for [place] surgical Dr. Del Rio who recommends admission and observation overnight. Results discussed with patient and patient updated a plan. States understanding. - Lab Data Result diagrams: 09/26/16 12:24 09/26/16 12:24 Lab Results 09/26/16 09/26/16 09/26/16 Range/Units 12:24 12:24 13:20 WBC 8.9 (3.8-10.6) k/uL RBC 3.35 L (3.80-5.40) m/uL Hgb 11.2 L (11.4-16.0) gm/dL Hct 33.0 L (34.0-46.0) % MCV 98.4 (80.0-100.0) fL MCH 33.5 (25.0-35.0) pg MCHC 34.1 (31.0-37.0) g/dL RDW 12.9 (11.5-15.5) % Plt Count 378 (150-450) k/uL Neutrophils % 74 % Lymphocytes % 19 % Monocytes % 5 % Eosinophils % 1 % Basophils % 0 % Neutrophils # 6.6 (1.3-7.7) k/uL Lymphocytes # 1.7 (1.0-4.8) k/uL Monocytes # 0.4 (0-1.0) k/uL Eosinophils # 0.1 (0-0.7) k/uL Basophils # 0.0 (0-0.2) k/uL Sodium 137 (137-145) mmol/L Potassium 3.9 (3.5-5.1) mmol/L Chloride 103 (98-107) mmol/L Carbon Dioxide 24 (22-30) mmol/L Anion Gap 10 mmol/L BUN 12 (7-17) mg/dL Creatinine 0.57 (0.52-1.04) mg/dL Est GFR (MDRD) Af Amer >60 (>60 ml/min/1.73 sqM) Est GFR (MDRD) Non-Af >60 (>60 ml/min/1.73 sqM) Glucose 94 (74-99) mg/dL Calcium 9.0 (8.4-10.2) mg/dL Total Bilirubin 1.1 (0.2-1.3) mg/dL AST 29 (14-36) U/L ALT 47 (9-52) U/L Alkaline Phosphatase 96 (38-126) U/L Total Protein 6.7 (6.3-8.2) g/dL Albumin 3.7 (3.5-5.0) g/dL Amylase 47 (30-110) U/L Lipase 61 (23-300) U/L Urine Color Light Yellow Urine Appearance Clear (Clear) Urine pH 6.5 (5.0-8.0) Ur Specific [place] 1.008 (1.001-1.035) Urine Protein Negative (Negative) Urine Glucose (UA) Negative (Negative) Urine Ketones Negative (Negative) Urine Blood Negative (Negative) Urine Nitrate Negative (Negative) Urine Bilirubin Negative (Negative) Urine Urobilinogen <2.0 (<2.0) mg/dL Ur Leukocyte Esterase Negative (Negative) Disposition Clinical Impression: Abdominal pain Disposition: ADMITTED IP TO THIS HOSP Condition: Stable Time of Disposition: 14:56
[2016-09-26] MEDS ORDERED: RX INFO: IV CONTRAST WAS GIVEN 1 EACH MISC MISCELLANE PRN (12:25)
[2016-09-26 12:34] LABS: Basophils % (A) 0 %; CH 32.9; CHCM 33.6; Eosinophils # (A) 0.1 k/uL (0-0.7); Eosinophils % (A) 1 %; HDW 2.54; HGB 11.2 gm/dL (11.4-16.0); Luc # (Auto) 0.13; Luc % (Auto) 2; Lymphocytes # (A) 1.7 k/uL (1.0-4.8); Lymphocytes % (A) 19 %; MCH 33.5 pg (25.0-35.0); MCHC 34.1 g/dL (31.0-37.0); MCV 98.4 fL (80.0-100.0); Mean Platelet Volume 7.6; Monocytes # (A) 0.4 k/uL (0-1.0); Monocytes % (A) 5 %; Neutrophils # (A) 6.6 k/uL (1.3-7.7); Neutrophils % (A) 74 %; RBC 3.35 m/uL (3.80-5.40); RDW 12.9 % (11.5-15.5); WBC 8.9 k/uL (3.8-10.6); WBC (Perox) 9.14
[2016-09-26 12:42] LABS: ALT 47 U/L (9-52); AST 29 U/L (14-36); Alkaline Phosphatase 96 U/L (38-126); Amylase 47 U/L (30-110); Anion Gap 10 mmol/L; Blood Urea Nitrogen 12 mg/dL (7-17); Carbon Dioxide 24 mmol/L (22-30); Chloride 103 mmol/L (98-107); Glucose 94 mg/dL (74-99); Non-African American GFR(MDRD) >60 (>60 ml/min/1.73 sqM); Potassium 3.9 mmol/L (3.5-5.1); Sodium 137 mmol/L (137-145); Total Bilirubin 1.1 mg/dL (0.2-1.3); Total Protein 6.7 g/dL (6.3-8.2)
--- NOTE | 2016-09-26 13:42 | CT ---
EXAMINATION TYPE: CT abdomen pelvis w con DATE OF EXAM: 09/26/2016 1:22 PM REFERENCE: Previous study dated 09/19/2016. HISTORY: Pain HISTORY: Patient complains of RUQ pain. Patient is 10 days post colonoscopy with recent splenic lace ration. CT DLP: 511.6 mGy Automated exposure control for dose reduction was used. TECHNIQUE: Helical acquisition through the abdomen and pelvis was obtained following the oral ingesti on of without Oral Contrast and following intravenous administration of 100 mL of Omnipaque 300. The data was reformatted in axial, coronal and sagittal projections. Findings: There is bibasilar atelectasis. The patient's right-sided pleural effusion has resolved. Th ere is no pericardial fluid. The heart is normal in size. Within the abdomen, there is a small amount of free fluid. This is has decreased further from the pre vious study. The liver and gallbladder appear normal. There is a 3 x 2.3 cm area of decreased attenuation persist s in the posterior aspect of the spleen. This may represent a subcapsular hematoma. This is slightly larger than on the previous examination. Both adrenal glands are normal. Both kidneys demonstrate function and appear morphologically normal. The pancreas appears unremarkable. There is minimal atheromatous calcification of the abdominal aorta. There is no significant retroperi toneal, iliac or inguinal adenopathy. The bladder is unremarkable. There are scattered diverticula in the sigmoid region without radiographic evidence of diverticulitis . The appendix is not visualized with certainty. There are mildly distended fluid-filled loops of small bowel in the distal jejunum and ileum, unchang ed from previous. No free air is identified. There is facet arthropathy in the lower lumbar facets. IMPRESSION: 1. BIBASILAR ATELECTASIS. 2. RESOLUTION OF THE PATIENT'S RIGHT EFFUSION. 3. SMALL AMOUNT OF FREE FLUID WITHIN THE ABDOMEN, DECREASED FROM PREVIOUS. 4. PERSISTENT AREA OF DECREASED ATTENUATION IN THE POSTERIOR ASPECT OF THE SPLEEN, SLIGHTLY LARGER TH AN ON THE PREVIOUS STUDY. 5. MINIMAL, UNCOMPLICATED DIVERTICULOSIS OF THE SIGMOID COLON. 6. MILD FACET ARTHROPATHY IN THE LOWER LUMBAR FACETS. 7. MINIMAL DISTENDED, FLUID-FILLED LOOPS OF DISTAL SMALL BOWEL.
[2016-09-26 13:43] LABS: Appearance,Urine Clear (Clear); Bilirubin,Urine Negative (Negative); Glucose,Urine (UA) Negative (Negative); Ketones,Urine Negative (Negative); Leukocyte Esterase,Urine Negative (Negative); Nitrite,Urine Negative (Negative); PH, Urine 6.5 (5.0-8.0); Protein,Urine Negative (Negative); Specific Gravity,Urine 1.008 (1.001-1.035); UA Billing (MACRO vs. MICRO) CHEM; Urobilinogen,Urine <2.0 mg/dL (<2.0)
[2016-09-26] MEDS: SODIUM CHLORIDE 0.9% 1,000 ML IV STA ×2 (14:25→19:59)
[2016-09-26] MEDS ORDERED: NALOXONE 0.4 MG/ML 1 ML VIAL IV PRN (14:57)
[2016-09-26] MEDS ORDERED: ONDANSETRON 4 MG/2 ML VIAL IVP PRN (14:57)
[2016-09-26] MEDS ORDERED: HYDROcodone/APAP 7.5-325MG 1 EACH TAB PO PRN (17:52)
--- NOTE | 2016-09-26 17:54 | P.GSHP ---
History of Present Illness H&P Date: 09/26/16 Chief Complaint: Right upper quadrant pain Patient is a 55-year-old lady who had a colonoscopy on 09/17/2016. After the procedure she had severe abdominal pain for which she underwent a computed tomography scan that revealed a subcapsular splenic hematoma. She was kept in the hospital for 4 days after that and was discharged home. She'll follow with Dr. Lucian Hudson this morning and at that time she was complaining of significant right upper quadrant pain. There is no nausea no vomiting she's feeling hungry passing flatus and having bowel movements. Pain is sharp and stabbing were located and right upper quadrant no radiation no shifting. She tries to get up he gets worse but once he starts ambulating the pain improves. There is no hematemesis hematochezia or melena. His no lightheadedness dizziness. She does have a history of reflux. At this time she's not having reflux - Constitutional Constitutional: Denies chills, Denies fever - EENT Eyes: denies blurred vision, denies bulging eye, denies decreased vision Ears: deny: decreased hearing Ears, nose, mouth and throat: Denies headache, Denies sore throat - Cardiovascular Cardiovascular: Denies chest pain, Denies claudication, Denies decreased exercise tolerance, Denies dyspnea on exertion, Denies edema, Denies shortness of breath - Respiratory Respiratory: Denies cough, Denies 7 - Gastrointestinal Gastrointestinal: Reports as per HPI, Reports abdominal pain - Genitourinary (Female) Genitourinary: Denies dysuria, Denies hematuria - Musculoskeletal Musculoskeletal: Denies myalgias - Integumentary Integumentary: Denies pruritus, Denies rash - Neurological Neurological: Denies numbness, Denies weakness Past Medical History Past Medical History: GERD/Reflux, Hyperlipidemia, Neurologic Disorder Additional Past Medical History / Comment(s): MIGRAINES HIATAL HERNIA, ADD/ADHD , EARLY STAGES OF MACULAR DEGENERATION History of Any Multi-Drug Resistant Organisms: None Reported Past Surgical History: Appendectomy, Orthopedic Surgery Additional Past Surgical History / Comment(s): left foot SX-REMOVED SOME BONE FROM GREAT TOE, LEEP. 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 Past Drug Use History: None Reported - Past Family History Mother Family Medical History: Congestive Heart Failure (CHF), Coronary Artery Disease (CAD), Myocardial Infarction (AL) Additional Family Medical History / Comment(s): CABG, MACULAR DEGENERATION Father Additional Family Medical History / Comment(s): MACULAR DEGENERATION Medications and Allergies Home Medications Medication Instructions Recorded Confirmed Type Dextroamphetamine/Amphetamine 30 mg PO DAILY 07/31/14 09/26/16 History [Adderall Xr] Omeprazole 40 mg PO DAILY 07/31/14 09/26/16 History Simvastatin 20 mg PO HS 07/31/14 09/26/16 History Aspirin [Adult Low Dose Aspirin EC] 162 mg PO HS 09/12/16 09/26/16 History Topiramate 50 mg PO HS 09/12/16 09/26/16 History HYDROcodone/APAP 7.5-325MG [[place] 1 tab PO Q4-6H PRN 09/26/16 09/26/16 History 7.5-325] Vit C/E/Zn/Coppr/Lutein/Zeaxan 2 cap PO DAILY 09/26/16 09/26/16 History [Preservision Areds 2 Softgel] Allergies Allergy/AdvReac Type Severity Reaction Status Date / Time No Known Allergies Allergy Verified 09/26/16 17:02 Surgical - Exam Vital Signs Temp Pulse Resp BP Pulse Ox 97.0 F L 96 17 162/96 99 09/26/16 11:48 09/26/16 11:48 09/26/16 11:48 09/26/16 11:48 09/26/16 11:48 - General well developed, well nourished, moderate distress, moderate pain - Eyes PERRL, normal ocular movement, no pale, no icteric, no deviation, no loss of movement - ENT no hearing loss, no congestion - Respiratory normal expansion, normal respiratory effort - Cardiovascular Rhythm: regular - Abdomen Moderate diffuse tenderness without any guarding or rebound Abdomen: soft, tender, no organomegaly, surgical scars, no wound, no masses, no guarding, no rigid, no rebound, no distended - Integumentary no rash, no abnormal pigmentation - Neurologic no disoriented, no combative - Musculoskeletal normal gait, normal posture - Psychiatric oriented to time, oriented to person, oriented to place, speech is normal, memory intact Results - Labs 09/26/16 12:24 09/26/16 12:24 - Imaging CT scan - abdomen: report reviewed, image reviewed US - abdomen: report reviewed, image reviewed (Computed tomography scan of the abdomen and pelvis was reviewed and reveals a hematoma which is slightly larger in size but not significantly. There is no active blush. This minimal amount of fluid within the abdomen. The gallbladder looks normal. No other intra- abdominal finding at this time. Previous history of a gallbladder ultrasound and HIDA scan were reviewed and she had a hypercontractile gallbladder without any cystic duct obstruction and no gallstones. The ultrasound and HIDA scan were 2-3 years old.) Assessment and Plan (1) Abdominal pain Status: Acute (2) Closed injury of spleen Status: Acute (3) S/P colonoscopy Status: Acute Plan: Overall the patient is stable from the surgical standpoint. From there is no increased significant increase in size with a splenic hematoma. She has lightheadedness and dizziness have vitals are stable her hemoglobin is stable. I will recommend starting a diet. Monitor her pain for the next 24 hours if the pain does not seem improved significantly then I will do a HIDA scan. At this time I believe most of the pins going obliquely intra-abdominal fluid and irritation that is being caused by it. Overall the patient is doing okay and is stable from the surgical standpoint and does not require any immediate surgery.
[2016-09-26] MEDS: HYDROmorphone 1 MG/ML 1 ML SYRINGE IV PRN (21:19)
[2016-09-26] MEDS: TOPIRAMATE 25 MG TAB PO SCH (21:19)
[2016-09-27] MEDS: HYDROmorphone 1 MG/ML 1 ML SYRINGE IV PRN ×4 (01:33→19:51)
[2016-09-27] MEDS: SODIUM CHLORIDE 0.9% 1,000 ML IV ONE ×2 (05:56→16:01)
[2016-09-27 07:11] LABS: Basophils % (A) 0 %; CH 32.8; CHCM 32.9; Eosinophils # (A) 0.1 k/uL (0-0.7); Eosinophils % (A) 2 %; HCT 30.5 % (34.0-46.0); HDW 2.54; Luc % (Auto) 2; Lymphocytes # (A) 1.5 k/uL (1.0-4.8); Lymphocytes % (A) 21 %; MCH 32.9 pg (25.0-35.0); MCHC 32.9 g/dL (31.0-37.0); MCV 100.1 fL (80.0-100.0); Mean Platelet Volume 7.4; Monocytes # (A) 0.4 k/uL (0-1.0); Monocytes % (A) 6 %; Neutrophils # (A) 4.7 k/uL (1.3-7.7); Neutrophils % (A) 69 %; RBC 3.05 m/uL (3.80-5.40); RDW 13.1 % (11.5-15.5); WBC 6.8 k/uL (3.8-10.6); WBC (Perox) 7.35
[2016-09-27 07:42] LABS: ALT 34 U/L (9-52); AST 22 U/L (14-36); Alkaline Phosphatase 74 U/L (38-126); Anion Gap 8 mmol/L; Blood Urea Nitrogen 8 mg/dL (7-17); Calcium 8.3 mg/dL (8.4-10.2); Carbon Dioxide 24 mmol/L (22-30); Chloride 111 mmol/L (98-107); Glucose 89 mg/dL (74-99); Non-African American GFR(MDRD) >60 (>60 ml/min/1.73 sqM); Potassium 4.2 mmol/L (3.5-5.1); Sodium 143 mmol/L (137-145); Total Bilirubin 0.6 mg/dL (0.2-1.3); Total Protein 5.5 g/dL (6.3-8.2)
[2016-09-27] MEDS: PANTOPRAZOLE 40 MG TABLET PO SCH ×2 (09:33→17:49)
--- NOTE | 2016-09-27 13:50 | NM ---
EXAMINATION TYPE: NM hepatobiliary w CCK DATE OF EXAM: 09/27/2016 1:43 PM COMPARISON: NONE HISTORY: Right upper quadrant pain TECHNIQUE: After the intravenous administration of 5.4 mCi Tc 99m Mebrofenin hepatobiliary scintigrap hy is performed. Immediate images post injection. FINDINGS: There is satisfactory initial accumulation of tracer by the liver. The gallbladder is visualized wit hin 5 minutes. The small bowel activity is noted within 5 minutes. At one hour CCK was administered , patient was injected with 1.3 mcg of Kinevac, and gallbladder ejection fraction is calculated at 86 %. IMPRESSION: No evidence for acute cholecystitis however elevated ejection fraction does suggest hyper contractile state.
[2016-09-27] MEDS: SUCRALFATE 1 GM TAB PO SCH ×3 (14:06→21:04)
--- NOTE | 2016-09-27 14:19 | P.PN ---
Subjective 55 -year-old female being seen with the surgical attending at the bedside. Dr. Epstein did review the HIDA scan with the radiologist. It shows no evidence of acute cholecystitis. The EF calculated at 86% suggesting hypercontractile state. Patient continues to report having right upper abdominal discomfort. Reports no nausea vomiting. Hemoglobin stable at 10. The admitting hemoglobin was 11.2 Objective - Vital Signs Vital signs: Vital Signs Temp 97.8 F 09/27/16 11:25 Pulse 81 09/27/16 11:25 Resp 16 09/27/16 11:25 BP 148/80 09/27/16 11:25 Pulse Ox 96 09/27/16 11:25 Intake & Output 09/26/16 09/27/16 09/27/16 18:59 06:59 18:59 Intake Total 1450 Balance 1450 Weight 66.9 kg Intake: IV 1450 Sodium Chloride 0.9% 1, 1450 000 ml @ 100 mls/hr IV . Q10H ONE Rx#:[id number] Other: # Voids 1 - Exam Physical exam 55-year-old female resting in bed just returned from having a HIDA scan. Patient continues to report having right upper quadrant discomfort. No other associated symptoms. Does not radiate. Patient states that when she tries to get up initially has pain but when she starts ambulating the pain resolved Lungs essentially clear adequate air movement on room air Heart S1-S2 audible regular Abdomen soft slight tenderness to the right upper quadrant no nausea no vomiting Extremities no edema noted - Labs CBC & Chem 7: 09/27/16 06:47 09/27/16 06:47 Labs: Abnormal Lab Results - Last 24 Hours (Table) 09/27/16 09/27/16 Range/Units 06:47 06:47 RBC 3.05 L (3.80-5.40) m/uL Hgb 10.0 L (11.4-16.0) gm/dL Hct 30.5 L (34.0-46.0) % MCV 100.1 H (80.0-100.0) fL Chloride 111 H (98-107) mmol/L Calcium 8.3 L (8.4-10.2) mg/dL Total Protein 5.5 L (6.3-8.2) g/dL Albumin 2.9 L (3.5-5.0) g/dL Assessment and Plan Plan: Impression Present on admission abdominal pain right upper quadrant with a normal HIDA scan showing no evidence of acute cholecystitis however elevated EF suggest hypercontractible state Status post colonoscopy Closed injury of the spleen Plan Repeat labs in the morning Resume home meds Pain control Prepped for probable discharge in the next 24 hours DVT and GI prophylaxis The above dictated assessment and findings were discussed with Dr. Monique Epstein Impression and the plan of care have been dictated as directed. Dionne Sandy nurse practitioner acting as a scribe for Dr. Henry
[2016-09-27] MEDS: ASPIRIN-ACET-CAFF 250-250-65MG 1 EACH TAB PO PRN (15:45)
--- NOTE | 2016-09-27 16:21 | P.CONS ---
History of Present Illness - Reason for Consult Consult date: 09/27/16 Medical management Requesting physician: Judd Del Rio - Chief Complaint abdominal pain right upper quadrant - History of Present Illness 55-year-old female one of Dr.Lucio- Matthews's patient who has been struggling with severe GERD heartburn and hiatal hernia recently underwent routine screening colonospy and egd for nausea and abdominal pain post prandial . Patient was then underwent elective EGD with Dr. Newby along with colonoscopy which was performed on 09/17/2016 successfully finding were consistent with severe GERD and have a hernia with mild gastritis colonoscopy was not significant at all. Patient complained of significant generalized abdominal pain with nausea or pain become 8-9 out of 10 which much worsening than expected ended up coming to the emergency department at [facility] where was seen and admitted last september 17 to September 21. Her CAT scan of the abdomen with IV contrast with no oral came back with slightly bit positive finding consistent with fluid in the peritoneum area with no free air but still suspicious for perforation. Repeat CAT scan did not show any significant perforation after repeat CT and was discharged to home. Patient subsequently came back to the emergency room secondary to increasing symptoms off abdominal pain right upper quadrant area. She had a repeat CAT scan that shows some mild scapular spleen hematoma 3 x 2.3 cm on 09/26/2016. Pain is noted on the right upper quadrant area was significant with position changes, continuous without any relief, stabbing pain. Also with pleuritic pain. Patient denies any chest pain or dysuria no hematuria no fever no chills she was admitted under service of Dr. Del Rio, and consults were made to medicine for medical management. Patient was scheduled to have HIDA scan with CCK to evaluate gallbladder pathology. Lipase was normal. Liver function test unremarkable, urinalysis was normal Review of Systems Constitutional: Reports as per HPI, Reports chills, Reports weight loss, Denies anorexia, Denies chronic headaches, Denies chronic pain, Denies daytime sleepiness, Denies fatigue, Denies fever, Denies lethargy, Denies malaise, Denies night sweats, Denies poor appetite, Denies sweats, Denies weakness, Denies weight gain Ears, nose, mouth and throat: Reports as per HPI, Denies ant. neck pain, Denies bleeding gums, Denies dental pain, Denies dysphagia, Denies epistaxis, Denies headache, Denies hoarseness, Denies mouth pain, Denies nasal congestion, Denies nasal discharge, Denies neck fullness/pressure, Denies neck lump, Denies nose pain, Denies odynophagia, Denies post-nasal drip, Denies sinus pain, Denies sinus pressure, Denies swelling in mouth, Denies swelling in throat, Denies sore throat, Denies vertigo, Denies voice changes Cardiovascular: Reports as per HPI, Denies chest pain, Denies claudication, Denies decreased exercise tolerance, Denies dyspnea on exertion, Denies edema, Denies high blood pressure, Denies irregular heart beat, Denies leg edema, Denies lightheadedness, Denies orthopnea, Denies palpitations, Denies paroxysmal nocturnal dyspnea, Denies phlebitis, Denies rapid heart beat, Denies shortness of breath, Denies syncope Respiratory: Reports as per HPI, Denies congestion, Denies cough, Denies cough with sputum, Denies dyspnea, Denies excessive sputum, Denies hemoptysis, Denies home oxygen, Denies pain, Denies pain on inspiration, Denies pleurisy, Denies respiratory infections, Denies sleep apnea, Denies snoring, Denies wheezing Gastrointestinal: Reports as per HPI, Reports abdominal pain, Reports bloating, Reports early satiety, Denies belching, Denies BRBPR, Denies change in bowel habits, Denies coffee ground emesis, Denies constipation, Denies diarrhea, Denies dyspepsia, Denies excessive gas, Denies heartburn, Denies hematemesis, Denies hematochezia, Denies indigestion, Denies jaundice, Denies lactose intolerance, Denies loss of appetite, Denies melena, Denies nausea, Denies vomiting Genitourinary: Reports as per HPI, Denies abnormal vaginal bleeding, Denies decreased libido, Denies difficulty conceiving, Denies difficulty voiding, Denies dysmenorrhea, Denies dyspareunia, Denies dysuria, Denies flank pain, Denies genital sores, Denies hematuria, Denies hot flashes, Denies incomplete emptying, Denies kidney stones, Denies menorrhagia, Denies mixed incontinence, Denies nocturia, Denies pelvic pain, Denies post void dribbling, Denies , Denies prolapse symptoms, Denies stress incontinence, Denies urge incontinence , Denies urgency, Denies urinary frequency, Denies vaginal discharge, Denies vaginal dryness, Denies vaginal itching, Denies vaginal odor Menstruation: Reports as per HPI, Denies amenorrhea, Denies amenorrhea on BC, Denies currently menstrual, Denies cycle < 21 days, Denies cycle > 35 days, Denies cycle variable, Denies menses 1-7 days, Denies menses 8 or > days, Denies menses variable, Denies period heavy, Denies period light, Denies period normal, Denies period spotting, Denies post hysterectomy, Denies postmenopausal , Denies premenarcheal Musculoskeletal: Reports as per HPI, Denies arm numbness/tingling, Denies atrophy, Denies fractures, Denies frequent falls, Denies gait dysfunction, Denies hot joints, Denies leg numbness/tingling, Denies limitation of motion, Denies loss of height, Denies low back pain, Denies morning stiffness, Denies muscle cramps, Denies muscle weakness, Denies myalgias, Denies neck pain, Denies neck stiffness, Denies prior amputations, Denies redness of joints, Denies shooting arm pain, Denies shooting leg pain Past Medical History Past Medical History: GERD/Reflux, Hyperlipidemia, Neurologic Disorder Additional Past Medical History / Comment(s): MIGRAINES HIATAL HERNIA, ADD/ADHD , EARLY STAGES OF MACULAR DEGENERATION History of Any Multi-Drug Resistant Organisms: None Reported Past Surgical History: Appendectomy, Orthopedic Surgery Additional Past Surgical History / Comment(s): left foot SX-REMOVED SOME BONE FROM GREAT TOE, LEEP. 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 Past Drug Use History: None Reported - Past Family History Mother Family Medical History: Congestive Heart Failure (CHF), Coronary Artery Disease (CAD), Myocardial Infarction (MD) Additional Family Medical History / Comment(s): CABG, MACULAR DEGENERATION Father Additional Family Medical History / Comment(s): MACULAR DEGENERATION Medications and Allergies Home Medications Medication Instructions Recorded Confirmed Type Dextroamphetamine/Amphetamine 30 mg PO DAILY 07/31/14 09/26/16 History [Adderall Xr] Omeprazole 40 mg PO DAILY 07/31/14 09/26/16 History Simvastatin 20 mg PO HS 07/31/14 09/26/16 History Aspirin [Adult Low Dose Aspirin EC] 162 mg PO HS 09/12/16 09/26/16 History Topiramate 50 mg PO HS 09/12/16 09/26/16 History HYDROcodone/APAP 7.5-325MG [[place] 1 tab PO Q4-6H PRN 09/26/16 09/26/16 History 7.5-325] Vit C/E/Zn/Coppr/Lutein/Zeaxan 2 cap PO DAILY 09/26/16 09/26/16 History [Preservision Areds 2 Softgel] Allergies Allergy/AdvReac Type Severity Reaction Status Date / Time No Known Allergies Allergy Verified 09/26/16 17:02 Physical Exam Vitals: Vital Signs Temp Pulse Pulse Pulse Resp BP BP 09/27/16 11:25 97.8 F 81 16 148/80 09/27/16 09:44 149/88 09/27/16 08:07 97.6 F 80 20 157/93 09/27/16 01:35 98.1 F 92 18 121/70 09/26/16 20:15 97.8 F 97 16 138/86 09/26/16 18:00 140/82 09/26/16 16:20 97.6 F 89 16 149/105 09/26/16 16:02 98.0 F 87 18 142/85 Pulse Ox 09/27/16 11:25 96 09/27/16 09:44 09/27/16 08:07 95 09/27/16 01:35 96 09/26/16 20:15 99 09/26/16 18:00 09/26/16 16:20 98 09/26/16 16:02 96 Intake and Output 09/27/16 09/27/16 09/27/16 06:59 14:59 22:59 Intake Total 980 Balance 980 Intake: IV 980 Sodium Chloride 0.9% 1, 980 000 ml @ 100 mls/hr IV . Q10H ONE Rx#:[id number] Other: # Voids 1 - Constitutional General appearance: cooperative, no acute distress - EENT Eyes: anicteric sclerae, EOMI, normal appearance ENT: hearing grossly normal, normal oropharynx - Neck Neck: normal ROM - Respiratory Respiratory: bilateral: CTA, negative: diminished, dullness, rales, rhonchi - Cardiovascular Rhythm: regular Heart sounds: normal: S1, S2 Abnormal Heart Sounds: no systolic murmur, no diastolic murmur, no rub, no S3 Gallop, no S4 Gallop, no click, no other - Gastrointestinal General gastrointestinal: normal bowel sounds, soft Localized gastrointestinal: tender: RUQ - Integumentary Integumentary: decreased turgor, normal - Neurologic Neurologic: CNII-XII intact - Musculoskeletal Musculoskeletal: gait normal, strength equal bilaterally - Psychiatric Psychiatric: A&O x's 3, appropriate affect, intact judgment & insight Results CBC & Chem 7: 09/27/16 06:47 09/27/16 06:47 Labs: Abnormal Lab Results - Last 24 Hours (Table) 09/27/16 09/27/16 Range/Units 06:47 06:47 RBC 3.05 L (3.80-5.40) m/uL Hgb 10.0 L (11.4-16.0) gm/dL Hct 30.5 L (34.0-46.0) % MCV 100.1 H (80.0-100.0) fL Chloride 111 H (98-107) mmol/L Calcium 8.3 L (8.4-10.2) mg/dL Total Protein 5.5 L (6.3-8.2) g/dL Albumin 2.9 L (3.5-5.0) g/dL Laboratory Results WBC 6.8 k/uL (3.8-10.6) 09/27/16 06:47 RBC 3.05 m/uL (3.80-5.40) L 09/27/16 06:47 Hgb 10.0 gm/dL (11.4-16.0) L 09/27/16 06:47 Hct 30.5 % (34.0-46.0) L 09/27/16 06:47 MCV 100.1 fL (80.0-100.0) H 09/27/16 06:47 MCH 32.9 pg (25.0-35.0) 09/27/16 06:47 MCHC 32.9 g/dL (31.0-37.0) 09/27/16 06:47 RDW 13.1 % (11.5-15.5) 09/27/16 06:47 Plt Count 375 k/uL (150-450) 09/27/16 06:47 Neutrophils % 69 % 09/27/16 06:47 Lymphocytes % 21 % 09/27/16 06:47 Monocytes % 6 % 09/27/16 06:47 Eosinophils % 2 % 09/27/16 06:47 Basophils % 0 % 09/27/16 06:47 Neutrophils # 4.7 k/uL (1.3-7.7) 09/27/16 06:47 Lymphocytes # 1.5 k/uL (1.0-4.8) 09/27/16 06:47 Monocytes # 0.4 k/uL (0-1.0) 09/27/16 06:47 Eosinophils # 0.1 k/uL (0-0.7) 09/27/16 06:47 Basophils # 0.0 k/uL (0-0.2) 09/27/16 06:47 Sodium 143 mmol/L (137-145) 09/27/16 06:47 Potassium 4.2 mmol/L (3.5-5.1) 09/27/16 06:47 Chloride 111 mmol/L (98-107) H 09/27/16 06:47 Carbon Dioxide 24 mmol/L (22-30) 09/27/16 06:47 Anion Gap 8 mmol/L 09/27/16 06:47 BUN 8 mg/dL (7-17) 09/27/16 06:47 Creatinine 0.56 mg/dL (0.52-1.04) 09/27/16 06:47 Est GFR (MDRD) Af Amer >60 (>60 ml/min/1.73 sqM) 09/27/16 06:47 Est GFR (MDRD) Non-Af >60 (>60 ml/min/1.73 sqM) 09/27/16 06:47 Glucose 89 mg/dL (74-99) 09/27/16 06:47 Calcium 8.3 mg/dL (8.4-10.2) L 09/27/16 06:47 Total Bilirubin 0.6 mg/dL (0.2-1.3) 09/27/16 06:47 AST 22 U/L (14-36) 09/27/16 06:47 ALT 34 U/L (9-52) 09/27/16 06:47 Alkaline Phosphatase 74 U/L (38-126) 09/27/16 06:47 Total Protein 5.5 g/dL (6.3-8.2) L 09/27/16 06:47 Albumin 2.9 g/dL (3.5-5.0) L 09/27/16 06:47 Amylase 47 U/L (30-110) 09/26/16 12:24 Lipase 61 U/L (23-300) 09/26/16 12:24 Urine Color Light Yellow 09/26/16 13:20 Urine Appearance Clear (Clear) 09/26/16 13:20 Urine pH 6.5 (5.0-8.0) 09/26/16 13:20 Ur Specific [place] 1.008 (1.001-1.035) 09/26/16 13:20 Urine Protein Negative (Negative) 09/26/16 13:20 Urine Glucose (UA) Negative (Negative) 09/26/16 13:20 Urine Ketones Negative (Negative) 09/26/16 13:20 Urine Blood Negative (Negative) 09/26/16 13:20 Urine Nitrate Negative (Negative) 09/26/16 13:20 Urine Bilirubin Negative (Negative) 09/26/16 13:20 Urine Urobilinogen <2.0 mg/dL (<2.0) 09/26/16 13:20 Ur Leukocyte Esterase Negative (Negative) 09/26/16 13:20 Assessment and Plan Plan: 1 severe abdominal pain right upper quadrant area status post colonoscopy and EGD on 09/17/2016, small subscapular hematoma noted 3 cm x 2 cm, right upper quadrant pain significant has to rule out for urinary colic. HIDA scan and CCK was requested by Dr. Del Rio, left scapular hematoma is currently asymptomatic however she does have mild anemia. Patient currently would continue on nothing by mouth status, await HIDA with CCK: Continue IV hydration 2 severe GERD and large Hernia with gastritis: Patient still symptomatic continue patient on pantoprazole IV Carafate is added patient might need a GI cocktail 3 hyperlipidemia: On simvastatin 4 ADD: Has been on Adderall resume medication 5 migraine: Has been on Topamax with secondary prevention stable controlled 6 smoking: Smoking cessation was addressed patient will be on nicotine patch 14 mg daily. 7 GI prophylaxis: Will be on pantoprazole. 8 DVT prophylaxis: Continue patient on Venodyne boots and knee-high FIONA hose. CODE STATUS: Full code. Expectation from this admission: Patient be in the hospital for more than 2 nights.
[2016-09-27] MEDS: TOPIRAMATE 25 MG TAB PO SCH (21:04)
[2016-09-28] MEDS: SODIUM CHLORIDE 0.9% 1,000 ML IV STA (01:06)
[2016-09-28] MEDS: HYDROmorphone 1 MG/ML 1 ML SYRINGE IV PRN ×2 (01:06→05:39)
[2016-09-28 07:12] LABS: Basophils % (A) 0 %; CH 32.6; CHCM 32.3; Eosinophils # (A) 0.2 k/uL (0-0.7); Eosinophils % (A) 2 %; HCT 32.5 % (34.0-46.0); HDW 2.58; HGB 10.5 gm/dL (11.4-16.0); Luc # (Auto) 0.11; Luc % (Auto) 1; Lymphocytes # (A) 1.7 k/uL (1.0-4.8); Lymphocytes % (A) 20 %; MCH 32.7 pg (25.0-35.0); MCHC 32.2 g/dL (31.0-37.0); MCV 101.4 fL (80.0-100.0); Mean Platelet Volume 7.5; Monocytes # (A) 0.5 k/uL (0-1.0); Monocytes % (A) 5 %; Neutrophils # (A) 6.1 k/uL (1.3-7.7); Neutrophils % (A) 71 %; RBC 3.21 m/uL (3.80-5.40); RDW 13.1 % (11.5-15.5); WBC 8.6 k/uL (3.8-10.6); WBC (Perox) 9.19
[2016-09-28 07:25] LABS: ALT 30 U/L (9-52); AST 22 U/L (14-36); Alkaline Phosphatase 76 U/L (38-126); Anion Gap 9 mmol/L; Blood Urea Nitrogen 6 mg/dL (7-17); Calcium 8.5 mg/dL (8.4-10.2); Carbon Dioxide 26 mmol/L (22-30); Chloride 109 mmol/L (98-107); Glucose 87 mg/dL (74-99); Non-African American GFR(MDRD) >60 (>60 ml/min/1.73 sqM); Potassium 3.8 mmol/L (3.5-5.1); Sodium 144 mmol/L (137-145); Total Bilirubin 0.6 mg/dL (0.2-1.3); Total Protein 6.2 g/dL (6.3-8.2)
[2016-09-28 07:50] VITALS: RESP 16
[2016-09-28] MEDS: PANTOPRAZOLE 40 MG TABLET PO SCH (08:41)
[2016-09-28] MEDS: SUCRALFATE 1 GM TAB PO SCH ×2 (08:42→14:06)
[2016-09-28] MEDS: ASPIRIN-ACET-CAFF 250-250-65MG 1 EACH TAB PO PRN (09:06)
[2016-09-28 11:38] VITALS: BP 137/80; PULSE 89; TEMP 97.8
--- NOTE | 2016-09-28 12:19 | P.PN ---
Subjective Principal diagnosis: Abdominal pain The patient is a 55-year-old white female who was recently discharged from the hospital being followed for a grade 3 splenic trauma. The patient was doing well and then noticed right upper quadrant abdominal discomfort. She was admitted to the hospital where a repeat CAT scan was performed as well as a HIDA scan with ejection fraction. The CAT scan revealed bibasilar atelectasis. A small amount of free fluid within the abdomen decreased from previous. In a persistent area of increased attenuation in the posterior aspect of the spleen slightly larger than on the previous study. The patient's HIDA scan with CCK ejection fraction revealed no evidence for acute cholecystitis, however an elevated ejection fraction does suggest hypercontractile state. At this time the patient is tolerating diet without difficulty. She states she has no further abdominal pain. Her white blood cell count is 8.6. Her hemoglobin is 10.5. Objective - Vital Signs Vital signs: Vital Signs Temp 97.8 F 09/28/16 11:36 Pulse 89 09/28/16 11:36 Resp 16 09/28/16 11:36 BP 137/80 09/28/16 11:36 Pulse Ox 98 09/28/16 11:36 Intake & Output 09/27/16 09/28/16 09/28/16 18:59 06:59 18:59 Intake Total 600 480 250 Output Total 750 Balance -150 480 250 Intake: Oral 600 480 250 Output: Urine 750 Other: # Voids 1 - Constitutional General appearance: Present: average body habitus, no acute distress - EENT Eyes: Present: EOMI - Respiratory Details: Slightly decreased breath sounds on the bases Mild crackles at the right base - Cardiovascular Rhythm: regular Heart sounds: normal: S1, S2 - Gastrointestinal General gastrointestinal: Present: normal bowel sounds, soft - Psychiatric Psychiatric: Present: A&O x's 3, appropriate affect, intact judgment & insight - Labs CBC & Chem 7: 09/28/16 06:41 09/28/16 06:41 Labs: Abnormal Lab Results - Last 24 Hours (Table) 09/28/16 09/28/16 Range/Units 06:41 06:41 RBC 3.21 L (3.80-5.40) m/uL Hgb 10.5 L (11.4-16.0) gm/dL Hct 32.5 L (34.0-46.0) % MCV 101.4 H (80.0-100.0) fL Chloride 109 H (98-107) mmol/L BUN 6 L (7-17) mg/dL Total Protein 6.2 L (6.3-8.2) g/dL Albumin 3.3 L (3.5-5.0) g/dL - Imaging and Cardiology CT scan - abdomen: report reviewed CT scan - pelvis: report reviewed (Biliary scan report and films reviewed) Assessment and Plan Plan: Impression/plan: 1. Splenic injury following colonoscopy stable 2. Resolution of right upper quadrant abdominal discomfort/hyperkinetic gallbladder on HIDA scan 3. History of migraine 4. History of smoking 5. GERD/gastritis Plan: 1. Patient is stable from a surgical standpoint to be discharged home to be followed as an outpatient
--- NOTE | 2016-09-28 12:38 | P.DS ---
Providers Date of admission: 09/26/16 15:03 Attending physician: Judd Del Rio Consults: 09/26/16 17:50 Consult Physician Routine Consulting Provider: Erik Tam Reason/Comments: medical management Do you want consulting provider notified?: Yes Primary care physician: [facility] Course: Patient is a 55-year-old white female who was admitted on , 09/25/2016 after being seen in the office with a complaint of right-sided abdominal discomfort. The patient's history significant for the fact that she had recently been discharged after being followed for a grade 3 splenic injury. The patient underwent a repeat CAT scan and a HIDA scan with an ejection fraction which revealed hyperkinetic gallbladder. The patient however his symptoms resolved she is tolerating diet without difficulty. She is going to be discharged home to be followed as an outpatient. Patient Condition at Discharge: Stable Plan - Discharge Summary Discharge Medication List Dextroamphetamine/Amphetamine [Adderall Xr] 30 mg PO DAILY 07/31/14 [History] Omeprazole 40 mg PO DAILY 07/31/14 [History] Simvastatin 20 mg PO HS 07/31/14 [History] Aspirin [Adult Low Dose Aspirin EC] 162 mg PO HS 09/12/16 [History] Topiramate 50 mg PO HS 09/12/16 [History] HYDROcodone/APAP 7.5-325MG [[place] 7.5-325] 1 tab PO Q4-6H PRN 09/26/16 [History] Vit C/E/Zn/Coppr/Lutein/Zeaxan [Preservision Areds 2 Softgel] 2 cap PO DAILY [History] Follow up Appointment(s)/Referral(s): Elizabeth Patterson MD [STAFF PHYSICIAN] - 2 Weeks Activity/Diet/Wound Care/Special Instructions: Patient is to have no contact sports for 6 weeks from her splenic injury Patient may return to work after [address] if taking narcotic pain medication Discharge Disposition: HOME SELF-CARE
--- NOTE | 2016-09-28 21:58 | P.PN ---
Subjective 55-year-old female one of Dr.Lucio- Matthews's patient who has been struggling with severe GERD heartburn and hiatal hernia recently underwent routine screening colonospy and egd for nausea and abdominal pain post prandial . Patient was then underwent elective EGD with Dr. Newby along with colonoscopy which was performed on 09/17/2016 successfully finding were consistent with severe GERD and have a hernia with mild gastritis colonoscopy was not significant at all. Patient complained of significant generalized abdominal pain with nausea or pain become 8-9 out of 10 which much worsening than expected ended up coming to the emergency department at [facility] where was seen and admitted last september 17 to September 21. Her CAT scan of the abdomen with IV contrast with no oral came back with slightly bit positive finding consistent with fluid in the peritoneum area with no free air but still suspicious for perforation. Repeat CAT scan did not show any significant perforation after repeat CT and was discharged to home. Patient subsequently came back to the emergency room secondary to increasing symptoms off abdominal pain right upper quadrant area. She had a repeat CAT scan that shows some mild scapular spleen hematoma 3 x 2.3 cm on 09/26/2016. Pain is noted on the right upper quadrant area was significant with position changes, continuous without any relief, stabbing pain. Also with pleuritic pain. Patient denies any chest pain or dysuria no hematuria no fever no chills she was admitted under service of Dr. Del Rio, and consults were made to medicine for medical management. Patient was scheduled to have HIDA scan with CCK to evaluate gallbladder pathology. Lipase was normal. Liver function test unremarkable, urinalysis was normal 09/28: Patient's pain has significantly improved, diet has been advanced and started, patient was anticipating her discharge today, HIDA scan was performed yesterday showing EF of 86%, no acute evidence of cholecystitis Objective - Vital Signs Vital signs: Vital Signs Temp 97.8 F 09/28/16 11:36 Pulse 89 09/28/16 11:36 Resp 16 09/28/16 11:36 BP 137/80 09/28/16 11:36 Pulse Ox 98 09/28/16 11:36 Intake & Output 09/27/16 09/28/16 09/28/16 18:59 06:59 18:59 Intake Total 600 480 250 Output Total 750 Balance -150 480 250 Intake: Oral 600 480 250 Output: Urine 750 Other: # Voids 1 - Constitutional General appearance: Present: average body habitus, cooperative, no acute distress - EENT Eyes: Present: anicteric sclerae, EOMI, PERRLA, dentition normal ENT: Present: hearing grossly normal, NA/AT, normal oropharynx - Neck Neck: Present: normal ROM. Absent: lymphadenopathy, other, rigidity, stridor, thyromegaly - Respiratory Respiratory: bilateral: CTA, negative: diminished, dullness, rales, rhonchi - Cardiovascular Rhythm: regular Heart sounds: normal: S1, S2 Abnormal Heart Sounds: Absent: systolic murmur, diastolic murmur, rub, S3 Gallop , S4 Gallop, click, other - Gastrointestinal General gastrointestinal: Present: normal bowel sounds, soft - Integumentary Integumentary: Present: normal, normal turgor - Neurologic Neurologic: Present: CNII-XII intact - Musculoskeletal Musculoskeletal: Present: gait normal, strength equal bilaterally - Psychiatric Psychiatric: Present: A&O x's 3, appropriate affect, intact judgment & insight - Labs CBC & Chem 7: 09/28/16 06:41 09/28/16 06:41 Labs: Abnormal Lab Results - Last 24 Hours (Table) 09/28/16 09/28/16 Range/Units 06:41 06:41 RBC 3.21 L (3.80-5.40) m/uL Hgb 10.5 L (11.4-16.0) gm/dL Hct 32.5 L (34.0-46.0) % MCV 101.4 H (80.0-100.0) fL Chloride 109 H (98-107) mmol/L BUN 6 L (7-17) mg/dL Total Protein 6.2 L (6.3-8.2) g/dL Albumin 3.3 L (3.5-5.0) g/dL Assessment and Plan Plan: 1 severe abdominal pain right upper quadrant area status post colonoscopy and EGD on 09/17/2016, small subscapular hematoma noted 3 cm x 2 cm, right upper quadrant pain significant has to rule out for urinary colic. HIDA scan and CCK was requested by Dr. Del Rio, left scapular hematoma is currently asymptomatic however she does have mild anemia. Patient currently would continue on nothing by mouth status, HIDA with CCK EF of 86% no evidence of acute cholecystitis: Continue IV hydration in has significantly improved today with advancement of diet and no exacerbation of pain 2 severe GERD and large Hernia with gastritis: Patient still symptomatic continue patient on pantoprazole IV Carafate is added patient might need a GI cocktail 3 hyperlipidemia: On simvastatin 4 ADD: Has been on Adderall resume medication 5 migraine: Has been on Topamax with secondary prevention stable controlled 6 smoking: Smoking cessation was addressed patient will be on nicotine patch 14 mg daily. 7 GI prophylaxis: Will be on pantoprazole. 8 DVT prophylaxis: Continue patient on Venodyne boots and knee-high FIONA hose. CODE STATUS: Full code. Expectation from this admission: Patient be in the hospital for more than 2 nights. Stable for discharge
== END 2016-09-28 14:21 | disposition home or self-care (01) ==
LOC: EC 11:45 → 6PED 15:03
PROVIDERS: ADMIT Surgery; ATTEND Surgery
DX: G89.18 Other acute postprocedural pain (principal); R10.11 Right upper quadrant pain; D78.32 Postprocedural hematoma of the spleen following other procedure; K21.9 Gastro-esophageal reflux disease without esophagitis; R07.81 Pleurodynia; Y84.8 Other medical procedures as the cause of abnormal reaction of the patient, or of later complication, without mention of misadventure at the time of the procedure; K29.70 Gastritis, unspecified, without bleeding; J98.11 Atelectasis; E78.5 Hyperlipidemia, unspecified; F17.200 Nicotine dependence, unspecified, uncomplicated; F90.9 Attention-deficit hyperactivity disorder, unspecified type; M46.90 Unspecified inflammatory spondylopathy, site unspecified; Z79.82 Long term (current) use of aspirin; Z82.49 Family history of ischemic heart disease and other diseases of the circulatory system; Z79.899 Other long term (current) drug therapy; G43.909 Migraine, unspecified, not intractable, without status migrainosus
CPT/HCPCS: 36415; 80053 ×3; 82150; 83690; 85025 ×3; 81003; 74177; 78227; 99285; 96374; 96375; 96361; G0378 ×3; A9537; J2405; J2805; J1170 ×3; Q9967; 96376

== ENCOUNTER → 2016-11-25 | Outpatient (CLI) | payer BC ==
[2016-11-25 20:01] LABS: ALT 31 U/L (9-52); AST 25 U/L (14-36); Alkaline Phosphatase 75 U/L (38-126); Anion Gap 9 mmol/L; Blood Urea Nitrogen 22 mg/dL (7-17); Calcium 9.7 mg/dL (8.4-10.2); Carbon Dioxide 24 mmol/L (22-30); Chloride 107 mmol/L (98-107); Glucose 92 mg/dL (74-99); Non-African American GFR(MDRD) >60 (>60 ml/min/1.73 sqM); Potassium 4.3 mmol/L (3.5-5.1); Sodium 140 mmol/L (137-145); Total Bilirubin 0.6 mg/dL (0.2-1.3); Total Protein 6.9 g/dL (6.3-8.2)
== END ==
LOC: MMGSC 10:52
PROVIDERS: ATTEND Family Medicine
DX: I10 Essential (primary) hypertension (principal); Z51.81 Encounter for therapeutic drug level monitoring
CPT/HCPCS: 36415; 80053

== ENCOUNTER → 2017-06-19 | Outpatient (CLI) | payer BC ==
--- NOTE | 2017-06-20 11:13 | MM ---
Reason for exam: screening (asymptomatic). Last mammogram was performed 1 year and 6 months ago. History: Patient is postmenopausal and is nulliparous. Benign left mammotome panel of the left breast, June 29, 2007. Benign left mammotome panel of the left breast, June 29, 2007. Physical Findings: A clinical breast exam by your physician is recommended on an annual basis and results should be correlated with mammographic findings. MG Screening Mammo w CAD Bilateral CC and MLO view(s) were taken. Prior study comparison: December 05, 2015, bilateral MG screening mammo w CAD. July 08, 2014, bilateral MG screening mammo w CAD. The breast tissue is heterogeneously dense. This may lower the sensitivity of mammography. There is a 5mm group of calcifications increasing from the priors for which additional views will be performed. There are upper outer quadrant of the left breast at posterior depth, 9-10cm from nipple. No suspicious abnormality in the right breast. ASSESSMENT: Incomplete: need additional imaging evaluation, BI-RAD 0 RECOMMENDATION: Special view mammogram of the left breast. [facility] will attempt to contact patient to return for supplemental views.
== END | disposition home or self-care (01) ==
LOC: RADMAMWWP 07:29
PROVIDERS: ATTEND Family Medicine
DX: Z12.31 Encounter for screening mammogram for malignant neoplasm of breast (principal)

== ENCOUNTER → 2017-07-01 | Outpatient (CLI) | payer BC ==
--- NOTE | 2017-07-01 14:22 | MM ---
Reason for exam: additional evaluation requested from abnormal screening. Last mammogram was performed less than 1 month ago. History: Patient is postmenopausal and is nulliparous. Benign left mammotome panel of the left breast, June 29, 2007. Benign left mammotome panel of the left breast, June 29, 2007. Physical Findings: Nurse did not find any significant physical abnormalities on exam. MG Work Up Mamm w CAD LT CC and MLO view(s) were taken of the left breast. Prior study comparison: June 19, 2017, bilateral MG screening mammo w CAD. December 05, 2015, bilateral MG screening mammo w CAD. Increasing calcifications upper outer left breast. Biopsy recommended. These results were verbally communicated with the patient and result sheet given to the patient on 07/01/17. ASSESSMENT: Suspicious, BI-RAD 4 RECOMMENDATION: Stereotactic core biopsy of the left breast. Called Dr. Lara with mammographic findings and has scheduled an appointment for the patient for 07/03/17 at 10:[address] Patterson. PRELIMINARY REPORT CALLED AND FAXED TO DR. PATTERSON ON 07/01/17.
== END | disposition home or self-care (01) ==
LOC: RADMAMWWP 12:48
PROVIDERS: ATTEND Family Medicine
DX: R92.8 Other abnormal and inconclusive findings on diagnostic imaging of breast (principal)

== ENCOUNTER → 2017-07-01 | Outpatient (CLI) | payer BC | LOC: LABWHC1 12:27 | PROVIDERS: ATTEND Internal Medicine Endocrinology, Diabetes & Metabolism | DX: E04.2 Nontoxic multinodular goiter (principal) | CPT/HCPCS: 36415; 84439; 84443 ==

== ENCOUNTER → 2018-06-26 | Outpatient (CLI) | payer BC ==
--- NOTE | 2018-06-30 09:49 | MM ---
Reason for exam: screening (asymptomatic). Last mammogram was performed 1 year ago. History: Patient is postmenopausal and is nulliparous. Benign MG stereo VAD BX LT of the left breast, July 17, 2017. Benign left mammotome panel of the left breast, June 29, 2007. Benign left mammotome panel of the left breast, June 29, 2007. Physical Findings: A clinical breast exam by your physician is recommended on an annual basis and results should be correlated with mammographic findings. MG Screening Mammo w CAD Bilateral CC and MLO view(s) were taken. Prior study comparison: July 01, 2017, left breast MG work up mamm w CAD LT. June 19, 2017, bilateral MG screening mammo w CAD. The breast tissue is heterogeneously dense. This may lower the sensitivity of mammography. Previous mammotome biopsy in the left breast x 2. There is chronic nodularity bilaterally. No significant changes when compared with prior studies. ASSESSMENT: Benign, BI-RAD 2 RECOMMENDATION: Routine screening mammogram of both breasts in 1 year.
== END ==
LOC: RADMAMWWP 09:30
PROVIDERS: ATTEND Family Medicine
DX: Z12.31 Encounter for screening mammogram for malignant neoplasm of breast (principal)
CPT/HCPCS: 77067

== ENCOUNTER → 2018-07-14 | Outpatient (CLI) | payer BC ==
--- NOTE | 2018-07-14 15:56 | CT ---
EXAMINATION TYPE: CT sinus wo con DATE OF EXAM: 07/14/2018 COMPARISON: NONE HISTORY: Sinus headaches x 10+ years. CT DLP: 612 mGycm. Automated Exposure Control for Dose Reduction was Utilized. TECHNIQUE: CT scan of the sinuses is performed without contrast, axial images are obtained, coronal r eformatted images are also reviewed. FINDINGS: The paranasal sinuses including the frontal, ethmoid, sphenoid, and maxillary sinuses bila terally are well-aerated without abnormal opacification. The ostiomeatal complex is patent bilateral ly on the coronal images. Nasal septum is deviated to left of midline. Visualized portion of mastoid air cells show no abnormal opacification. There is fracture deformity m edial wall right orbit axial image 31 presumed old. IMPRESSION: The sinuses are clear and the ostiomeatal complex is patent bilaterally.
== END ==
LOC: RADCTMAIN 12:36
PROVIDERS: ATTEND Otolaryngology
DX: J32.9 Chronic sinusitis, unspecified (principal)
CPT/HCPCS: 70486

== ENCOUNTER → 2018-08-28 | Outpatient (CLI) | payer BC ==
--- NOTE | 2018-08-28 10:13 | MR ---
EXAMINATION TYPE: MR brain wo/w con DATE OF EXAM: 08/28/2018 COMPARISON: None HISTORY: Headache TECHNIQUE: Multiplanar, multisequence images of the brain and brainstem is performed without and with IV contras t, utilizing 6.5 mL intravenous Gadavist . FINDINGS: Diffusion weighted images demonstrate no evidence of a recent infarct or other diffusion ab normality. There is no extra-axial fluid collection. There are scattered hyperintensities present o n inversion recovery and T2-weighted sequences within the periventricular, pericallosal, subcortical white matter. Approximately 50 lesions are present. Largest in the centrum semiovale on the right jaqueline sures approximately 9 mm axial image 22. Fluid hyperintensity adjacent to the right lateral ventricle posterior horn measures 13 mm axial image 17. There are normal vascular flow voids. The ventricular system and cisternal spaces are normal in size and appearance. The brain volume is age appropriate. Midline structures demonstrate normal morphology. The craniocervical junction appears within normal limits. Post contrast images demonstrate no abnormal enhancement. The dural venous sinuses appear pa tent. The visualized sinuses are remarkable for inflammatory change in the right maxillary sinus, sph enoid ethmoidal region and the globes are intact. IMPRESSION: Nonspecific white matter demyelination. Findings could be related to multiple sclerosis, hypertension, migraine headaches, chronic small vessel ischemia or vasculitis. Mild sinus disease.
== END | disposition home or self-care (01) ==
LOC: RADMRIMAIN 08:26
PROVIDERS: ATTEND Psychiatry & Neurology Neurology
DX: R90.89 Other abnormal findings on diagnostic imaging of central nervous system (principal); R51 Headache
CPT/HCPCS: 82565; 70553; 36415; A9585

== ENCOUNTER → 2018-10-12 | Outpatient (CLI) | payer BC | LOC: LABWHC1 08:50 | PROVIDERS: ATTEND Psychiatry & Neurology Neurology | DX: G40.909 Epilepsy, unspecified, not intractable, without status epilepticus (principal) | CPT/HCPCS: 36415; 80177; 82565; 84520 ==

== ENCOUNTER → 2018-12-25 | Outpatient (CLI) | payer BC ==
--- NOTE | 2018-12-25 11:47 | US ---
EXAMINATION TYPE: US thyroid st tissue head/neck DATE OF EXAM: 12/25/2018 COMPARISON: US 2017 CLINICAL HISTORY: E04.1 nontoxic single thyroid nodule. Follow up thyroid nodules GLAND SIZE: Right Lobe: 4.7 x 1.5 x 1.6 cm Overall Parenchyma: homogenous Left Lobe: 4.5 x 1.1 x 1.2 cm Overall Parenchyma: homogeneous Isthmus Thickness: 0.3 cm NODULES RIGHT: # of nodules measured on right: 2 1. 0.6 X 0.4 x 0.5 cm hypoechoic nodule at the mid pole with well-defined margins. This nodule is w ider than tall and shows intranodular vascularity. Prior size: 0.5 x 0.4 x 0.5 cm 2. 0.3 X 0.3 x 0.3 cm hypoechoic nodule at the upper mid pole with well-defined margins. This nodule is wider than tall and shows no intranodular vascularity. Prior size: 0.2 x 0.2 x 0.2 cm LEFT: # of nodules measured on left: 2 1. 0.4 X 0.3 x 0.4 cm hypoechoic nodule at the upper pole with well-defined margins. This nodule is taller than wide and shows no intranodular vascularity. Prior size: 0.4 x 0.2 x 0.3 cm 2. 0.4 X 0.2 x 0.3 cm hypoechoic nodule at the mid pole with well-defined margins. This nodule is wi santhosh than tall and shows no intranodular vascularity. Prior size: 0.3 x 0.2 x 0.3 cm ISTHMUS: # of nodules measured in the isthmus: 0 Bilateral neck scanned, no evidence of lymphadenopathy. IMPRESSION: 1. Bilateral stable subcentimeter thyroid nodules
== END | disposition home or self-care (01) ==
LOC: RADUSWWP 10:48
PROVIDERS: ATTEND Family Medicine
DX: E04.2 Nontoxic multinodular goiter (principal)
CPT/HCPCS: 76536

== ENCOUNTER → 2019-02-03 | Outpatient (CLI) | payer BC ==
[2019-02-03 16:40] LABS: African American GFR (CKD) 109.9 (60.0-200.0); Albumin 4.3 g/dL (3.80-4.90); Albumin/Globulin Ratio 2.39 (1.60-3.17); Anion Gap 10.4 mmol/L (4.00-12.00); BUN/Creat Ratio 21.43 Ratio (12.00-20.00); Calcium 9.6 mg/dL (8.7-10.3); Carbon Dioxide 26.6 mmol/L (21.6-31.8); Globulin 1.8 g/dL (1.6-3.3); LDL Cholesterol,Calculated 109.4 mg/dL (0.0-131.0); Total Bilirubin 0.6 mg/dL (0.2-1.2); Total Protein 6.1 g/dL (6.2-8.2); VLDL Calculation 25.6 mg/dL (5.00-40.00)
[2019-02-03 16:51] LABS: T4, Free (Free Thyroxine) 1.1 ng/dL (0.80-1.80)
== END | disposition home or self-care (01) ==
LOC: LABWHC1 09:15
PROVIDERS: ATTEND Family Medicine
DX: I10 Essential (primary) hypertension (principal)
CPT/HCPCS: 36415; 80053; 80061; 84439; 84443

== ENCOUNTER 2019-02-22 06:25 | Day surgery (SDC) | payer BC ==
[2019-02-10 15:39] VITALS: BMI 26.5
--- NOTE | 2019-02-21 16:21 | P.HPOB ---
History of Present Illness H&P Date: 02/21/19 Chief Complaint: Recurrent low grade squamous intraepithelial lesion of the cervix This is a 58-year-old female 0 presents for loop electrocautery excision procedure with colposcopy due to recurrent low-grade squamous entered digitally a lesion of the cervix. She did have a previous LEEP procedure in August 2012 and has had previous cryocautery.. Her initial abnormal Pap smear was in 2009 and that showed atypical squamous cells of undetermined significance with equivocal HPV. Her colposcopy did show low-grade. The LEEP procedure did show low-grade up to the margin. Since that time repeat Pap smears have continued to show low-grade with high risk HPV negative. She also had a repeat colposcopy that did show low-grade. In light of the findings, the decision is made to proceed with repeat loop electrocautery excision procedure with colposcopy. Obstetrical history: . Gynecologic history: No history of sexually transmitted diseases. She is menopausal. Social history: She is . She is self-employed. Review of Systems Eyes: denies blurred vision, denies pain Ears, nose, mouth and throat: Denies sore throat Cardiovascular: Denies chest pain, Denies shortness of breath Respiratory: Denies cough Gastrointestinal: Reports abdominal pain (Occasional), Reports constipation, Reports diarrhea, Reports heartburn Genitourinary: Denies dysuria, Denies hematuria Menstruation: Reports postmenopausal Musculoskeletal: Reports myalgias Integumentary: Denies pruritus, Denies rash Neurological: Reports headaches (Frequent) Psychiatric: Reports difficulty concentrating, Reports insomnia Endocrine: Denies fatigue, Denies weight change Past Medical History Past Medical History: GERD/Reflux, Hyperlipidemia, Hypertension, Neurologic Disorder Additional Past Medical History / Comment(s): MIGRAINES, HIATAL HERNIA, EARLY STAGES OF MACULAR DEGENERATION History of Any Multi-Drug Resistant Organisms: None Reported Past Surgical History: Appendectomy, Orthopedic Surgery Additional Past Surgical History / Comment(s): left foot SX-REMOVED SOME BONE FROM GREAT TOE, LEEP. COLONOSCOPY, EGD" SPLENIC DAMAGE" Past Anesthesia/Blood Transfusion Reactions: No Reported Reaction Past Psychological History: ADD/ADHD Smoking Status: Current every day smoker Past Alcohol Use History: Occasional Past Drug Use History: None Reported - Past Family History Mother Family Medical History: Congestive Heart Failure (CHF), Coronary Artery Disease (CAD), Myocardial Infarction (CT) Additional Family Medical History / Comment(s): CABG, MACULAR DEGENERATION Father Additional Family Medical History / Comment(s): MACULAR DEGENERATION Medications and Allergies Home Medications Medication Instructions Recorded Confirmed Type Dextroamphetamine/Amphetamine 30 mg PO DAILY 07/31/14 02/10/19 History [Adderall Xr] Omeprazole 40 mg PO DAILY 07/31/14 02/10/19 History Simvastatin 20 mg PO HS 07/31/14 02/10/19 History Aspirin [Adult Low Dose Aspirin EC] 162 mg PO HS 09/12/16 02/10/19 History Topiramate 50 mg PO HS 09/12/16 02/10/19 History Vit C/E/Zn/Coppr/Lutein/Zeaxan 1 each PO DAILY 02/10/19 02/10/19 History [Preservision Areds 2 Softgel] Allergies Allergy/AdvReac Type Severity Reaction Status Date / Time No Known Allergies Allergy Verified 02/10/19 15:29 Exam Osteopathic Statement: *. No significant issues noted on an osteopathic structural exam other than those noted in the History and Physical/Consult. HEENT: Within normal limits Heart: Regular rate and rhythm Lungs: Clear to auscultation bilaterally Abdomen: Soft, nontender Pelvic exam: Cervix is very scarred and stenotic and uterus is retroverted, nontender, with no adnexal masses or tenderness noted. Extremities: Negative Homans Assessment and Plan (1) Low grade squamous intraepithelial lesion Narrative/Plan: Recurrent Status: Chronic Code(s): [id number] - SNOMED Code(s): 215630039 Plan: Proceed with loop electrocautery excision procedure with colposcopy. I have discussed the risks, benefits, and alternative therapies for the above- mentioned procedure and for both sedation/anesthesia as well as necessary blood products administration, if indicated, as they pertain to this patient. The patient has indicated her understanding and acceptance of the risks and procedures discussed.
[~2019-02-22 06:25] MED LIST changes: +DEXAMETHASONE SOD PHOSPHATE 10 MG/ML 1 ML VIAL IV ONE; +HYDROmorphone 0.5 MG/0.5 ML SYRINGE IVP PRN; +KETOROLAC 30 MG/ML 1 ML VIAL IVP SCH; +LIDOCAINE 1% 20 ML VIAL (10MG/ML) FOR IV START INTRADERMA PRN; +Pre Op ABX Message 1 EACH MISC MISCELLANE ONE; +SCOPOLAMINE 1.5MG/72HR PATCH TRANSDERM ONE
[2019-02-22 06:54] VITALS: RESP 16
[2019-02-22] MEDS ORDERED: ONDANSETRON 4 MG/2 ML VIAL IVP ONE (07:03)
[2019-02-22] MEDS ORDERED: FAMOTIDINE 20 MG/2 ML VIAL IVP ONE (07:05)
[2019-02-22] MEDS ORDERED: MIDAZOLAM 2 MG/2 ML VIAL ONE (07:25)
[2019-02-22] MEDS ORDERED: PROPOFOL 10 MG/ML 20 ML VIAL IV ONE (07:25)
[2019-02-22] MEDS ORDERED: fentaNYL (PF) 50 MCG/ML 2 ML AMP ONE (07:25)
[2019-02-22] MEDS ORDERED: LIDOCAINE 1% INJ 10MG/ML (20 ML MDV) ONE (07:25)
[2019-02-22] MEDS ORDERED: BUPIVACAINE (PF) 0.5% 30 ML VIAL SQ ONE (07:28)
[2019-02-22] MEDS ORDERED: ACETIC ACID 15 DROPS/ML DROPS MISCELLANE ONE (07:28)
[2019-02-22] MEDS ORDERED: FERRIC SUBSULFATE (MONSELS) JAR TOPICAL ONE (07:28)
[2019-02-22] MEDS ORDERED: LIDOCAINE 1%-EPI 1:100,000 20 ML VIAL SQ ONE (07:28)
[2019-02-22] MEDS ORDERED: IODINE/POTASS IOD (LUGOLS) 8 ML BTL TOPICAL ONE (07:28)
--- NOTE | 2019-02-22 08:13 | P.OP ---
Date of Procedure: 02/22/19 Preoperative Diagnosis: Recurrent low-grade squamous intraepithelial lesion of the cervix Postoperative Diagnosis: Same Procedure(s) Performed: Colposcopy LEEP procedure not performed Anesthesia: other (Mask general) Surgeon: Nette Childers Estimated Blood Loss (ml): 2 Pathology: none sent Condition: stable Disposition: same day Indications for Procedure: This is a 58-year-old female 0 presents for loop electrocautery excision procedure with colposcopy due to recurrent low-grade squamous entered digitally a lesion of the cervix. She did have a previous LEEP procedure in August 2012 and has had previous cryocautery.. Her initial abnormal Pap smear was in 2009 and that showed atypical squamous cells of undetermined significance with equivocal HPV. Her colposcopy did show low-grade. The LEEP procedure did show low-grade up to the margin. Since that time repeat Pap smears have continued to show low-grade with high risk HPV negative. She also had a repeat colposcopy that did show low-grade. In light of the findings, the decision is made to proceed with repeat loop electrocautery excision procedure with colposcopy. Operative Findings: Cervical os was not visible. Using the coated speculum, the cervix was not able to be visualized. Half of the speculum was placed and a [place] forcep was used as the anterior retractor to try to visualize the cervical area. No visible opening to the cervix was noted. Bimanual exam was performed and a small firm area was palpated that most likely was cervix and uterus was noted to be small and retroverted with no adnexal masses palpated. Colposcopy was attempted and acetic acid and Lugol solution were applied however no visible abnormalities were seen. Since the cervix could not be adequately delineated, the decision was made not to proceed with a loop electrocautery excision procedure for fear of injuring the patient. Description of Procedure: The patient was taken to the operating room where she is placed in the dorsal lithotomy position. She is prepped and draped in the normal sterile fashion. Her bladder is drained with a catheter. Examination is performed under anesthesia. Uterus is found to be all, retroverted, with no adnexal masses palpated. Next a coated bivalve speculum was placed in the patient's vagina. The speculum was barely able to be opened due to the narrow vaginal holman. Speculum was removed and the smaller right angle retractor was used to retract posteriorly and a [place] forcep was used to retract anteriorly. There is a significant amount of scar tissue and no visible cervix was noted. Attempts at colposcopy was made. The area was swabbed with acetic acid and no visible abnormalities were seen. The same area was swabbed with Lugol solution and again no visible abnormalities were noted. I could not adequately make out where the cervical os was. In light of these findings, the decision is made not to proceed with the loop part of procedure due to fear of injury to adjacent organs. At this point all instrument are removed from the vagina. All sponge counts are correct. The patient will be taken to recovery room in stable condition.
[2019-02-22 08:21] VITALS: TEMP 98
[2019-02-22 09:26] VITALS: BP 139/89; PULSE 78
== END 2019-02-22 09:47 | disposition home or self-care (01) ==
LOC: OR 06:25
PROVIDERS: ATTEND Obstetrics & Gynecology
DX: R87.612 Low grade squamous intraepithelial lesion on cytologic smear of cervix (LGSIL) (principal); K21.9 Gastro-esophageal reflux disease without esophagitis; E78.5 Hyperlipidemia, unspecified; I10 Essential (primary) hypertension; G43.909 Migraine, unspecified, not intractable, without status migrainosus; H35.30 Unspecified macular degeneration; K44.9 Diaphragmatic hernia without obstruction or gangrene; F90.9 Attention-deficit hyperactivity disorder, unspecified type; F17.210 Nicotine dependence, cigarettes, uncomplicated; Z82.49 Family history of ischemic heart disease and other diseases of the circulatory system; Z79.82 Long term (current) use of aspirin; Z79.899 Other long term (current) drug therapy
CPT/HCPCS: 84132; 57452; J2250; J1100; J2405; J2001; J3010; J2704

== ENCOUNTER → 2019-02-25 | Outpatient (CLI) | payer BC | END | disposition home or self-care (01) | LOC: LABWHC1 12:58 | PROVIDERS: ATTEND Family Medicine | DX: E87.6 Hypokalemia (principal) | CPT/HCPCS: 36415; 84132 ==

== ENCOUNTER → 2019-04-22 | Outpatient (CLI) | payer BC ==
[~2019-04-22] MED LIST changes: -DEXAMETHASONE SOD PHOSPHATE 10 MG/ML 1 ML VIAL IV ONE; +DOBUTamine DRIP for NUC MED 500 MG in DEXTROSE/WATER 1 250ML.BAG IV ONE; -HYDROmorphone 0.5 MG/0.5 ML SYRINGE IVP PRN; -KETOROLAC 30 MG/ML 1 ML VIAL IVP SCH; -LACTATED RINGERS 1,000 ML IV SCH; -LIDOCAINE 1% 20 ML VIAL (10MG/ML) FOR IV START INTRADERMA PRN; -Pre Op ABX Message 1 EACH MISC MISCELLANE ONE; -SCOPOLAMINE 1.5MG/72HR PATCH TRANSDERM ONE
--- NOTE | 2019-04-22 12:29 | ECHOS ---
STRESS ECHOCARDIOGRAM INDICATIONS: Chest pain, difficulty in breathing. BASELINE HEART RATE: 88 BASELINE BLOOD PRESSURE: 104/49 MAXIMUM HEART RATE: 142 MAXIMUM BLOOD PRESSURE: 129/98 85% MPHR: 137 100% MPHR: 161 MAXIMUM STAGE REACHED: 3 TOTAL EXERCISE TIME: 6:30 CLINICAL INFORMATION: Baseline rhythm is sinus mechanism, rate of 88, normal axis, intervals, nonspecific ST- T wave changes, baseline blood pressure 104/49 mmHg. Patient received an infusion of dobutamine per protocol. Peak rate 142 beats per minute which is equal to 87% maximum predicted heart rate. Peak blood pressure 129/98 mmHg. Electrocardiograph monitoring revealed no evidence of diagnostic ischemic ST deviation. Baseline echocardiogram revealed normal wall thickening and motion. At peak exercise there was normal wall motion augmentation with no hypokinesis or dyskinesis. CONCLUSION: 1. Nondiagnostic electrocardiograph response to dobutamine infusion. 2. Normal stress echocardiogram with no evidence of stress-induced ischemia. MMODL / IJN: [id number] /
== END | disposition home or self-care (01) ==
LOC: RADNMMAIN 10:00
PROVIDERS: ATTEND Family Medicine
DX: R06.00 Dyspnea, unspecified (principal)
CPT/HCPCS: 93351; J1250

== ENCOUNTER → 2019-09-27 | Outpatient (CLI) | payer BC ==
--- NOTE | 2019-09-27 09:30 | BD ---
EXAMINATION TYPE: Axial Bone Density DATE OF EXAM: 09/27/2019 COMPARISON: NONE CLINICAL HISTORY: Z 78.0 Height: 62.50 Weight: 148 FRAX RISK QUESTIONS: Alcohol (3 or more units per day): no Family History (Parent hip fracture): YES Glucocorticoids (More than 3mos): no (Ex: prednisone, prednisolone, methylprednisolone, dexamethasone, and hydrocortisone). History of Fracture in Adulthood: yes Secondary Osteoporosis: 1. Type 1 Diabetes: no 2. Hyperthyroidism: no 3. Menopause before 45: no 4. Malnutrition: no 5. Chronic liver disease: no Rheumatoid Arthritis: no Current Tobacco Use: YES RISK FACTORS HISTORY OF: Family History of Osteoporosis: yes Active: yes Diet low in dairy products/other sources of calcium: yes Postmenopausal woman: yes Take estrogen and/or progesterone medications: no Lost more than 2 inches in height since high school: no Frequent falls: no Poor Health: no Hyperparathyroidism: patient states yes Adrenal Insufficiency: no MEDICATIONS: Prednisone or other steroids: no Thyroid Medications: no Osteoporosis Medications: no Additional Medications: cholesterol med, migraine med, blood pressure med, med for GERD Additional History: GERD EXAM MEASUREMENTS: Bone mineral densitometry was performed using the [employer]. Bone mineral density as measured about the Lumbar spine is: ----- L1-L4(G/cm2): 0.870 T Score Values are as follows: ----- L2: -2.8 ----- L3: -2.4 ----- L4: -2.4 ----- L1-L4: -2.6 Bone mineral density BASELINE Bone mineral density about the R hip (g/cm2): 0.784 Bone mineral density about the L hip (g/cm2): 0.766 T Score values are as follows: -----R Neck: -1.8 -----L Neck: -2.0 -----R Total: -1.5 -----L Total: -1.5 Bone mineral density BASELINE IMPRESSION: Osteoporosis (T Score less than -2.5). There is increased fracture risk and therapy is usually indicated based on age. Re-Screen 1-2 years. NOTE: T-SCORE=SD OF THE YOUNG ADULT MEAN.
--- NOTE | 2019-09-28 11:58 | MM ---
Reason for exam: screening (asymptomatic). Last mammogram was performed 1 year and 3 months ago. History: Patient is postmenopausal and is nulliparous. Benign MG stereo VAD BX LT of the left breast, July 17, 2017. Benign left mammotome panel of the left breast, June 29, 2007. Benign left mammotome panel of the left breast, June 29, 2007. Physical Findings: A clinical breast exam by your physician is recommended on an annual basis and results should be correlated with mammographic findings. MG Screening Mammo w CAD Bilateral CC and MLO view(s) were taken. Prior study comparison: June 26, 2018, bilateral MG screening mammo w CAD. July 01, 2017, left breast MG work up mamm w CAD LT. The breast tissue is heterogeneously dense. This may lower the sensitivity of mammography. There is a stable right oval circumscribed central inner mass at middle depth. Benign appearing bilateral calcifications. No suspicious abnormality. Multiple left biopsy markers noted. No significant changes when compared with prior studies. ASSESSMENT: Benign, BI-RAD 2 RECOMMENDATION: Routine screening mammogram of both breasts in 1 year.
== END | disposition home or self-care (01) ==
LOC: RADMAMWWP 07:32
PROVIDERS: ATTEND Obstetrics & Gynecology
DX: Z12.31 Encounter for screening mammogram for malignant neoplasm of breast (principal); M81.0 Age-related osteoporosis without current pathological fracture
CPT/HCPCS: 77067; 77080

== ENCOUNTER → 2020-04-17 | Outpatient (CLI) | payer BC ==
--- NOTE | 2020-04-17 09:09 | US ---
EXAMINATION TYPE: US abdomen complete DATE OF EXAM: 04/17/2020 COMPARISON: CT 2017. CLINICAL HISTORY: R10.11 right upper quadrant pain. Generalized pain EXAM MEASUREMENTS: Liver Length: 13.9 cm Gallbladder Wall: 0.1 cm CBD: 0.5 cm Spleen: 8.1 cm Right Kidney: 10.8 x 5.1 x 4.6 cm Left Kidney: 10.2 x 5.2 x 5.0 cm Limited visualization due to overlying bowel gas Pancreas: wnl Liver: wnl Gallbladder: wnl Evidence for sonographic Cardozo's sign: neg CBD: wnl Spleen: Limited visualization, not well seen Right Kidney: No hydronephrosis or masses seen Left Kidney: No hydronephrosis or masses seen Upper IVC: wnl Abd Aorta: No AAA visualized The visualized liver is homogenous. The intrahepatic portion of the IVC and visualized abdominal aor ta are within normal limits. There is no evidence of cholelithiasis. Common bile duct is unremarkab le. The visualized portions of the pancreas are homogenous. The spleen is unremarkable. Kidneys ar e symmetric and free of hydronephrosis. No renal lesions are seen. IMPRESSION: Suboptimal evaluation of spleen noted. No acute findings are evident.
== END | disposition home or self-care (01) ==
LOC: RADUSWWP 08:14
PROVIDERS: ATTEND Family Medicine
DX: R10.11 Right upper quadrant pain (principal)
CPT/HCPCS: 76700

== ENCOUNTER → 2020-09-06 | Outpatient (CLI) | payer BC ==
[~2020-09-06] MED LIST changes: -DOBUTamine DRIP for NUC MED 500 MG in DEXTROSE/WATER 1 250ML.BAG IV ONE; +REGADENOSON 0.4 MG/5 ML SYRINGE IV PRN
--- NOTE | 2020-09-06 10:16 | P.STRESS ---
- Stress Test Note Stress Test Results/Findings: Exam Performed: NM stress lexiscan cardiolite Exam Date: 09/06/20 Reason for Exam: CHEST PAIN Height: 5 ft 2 in Weight: 72.7 kg Protocol: LEXISCAN Stage: N/A Duration of Exercise: 5 MINUTES Resting Heart Rate: 79 Resting Blood Pressure: 120/84 Maximum Achieved Heart Rate: 99 Maximum Achieved Blood Pressure: 120/84 85% PMHR: 136 100% PMHR: 160 METS: N/A Technologist Comment: Stress Test Results/Findings: This is a 59-year-old female with history of hypertension, hypercholesterolemia, family history of ischemic heart disease and also smoking history, being evaluated for symptoms of chest pain and also because of abnormal EKG. Stress data: Baseline EKG showed sinus rhythm with nonspecific ST-T abnormalities in inferolateral leads. Blood pressure at rest is 120/84 with pulse rate of 79. Patient was given standard dose of Lexiscan. EKGs taken during and after the Lexiscan infusion did not show any significant changes compared to the baseline. Patient did not experience any chest pain. Final impression: #1. Nondiagnostic Lexiscan stress test. #2. Report on the nuclear images to be given by the radiologist.
--- NOTE | 2020-09-06 12:04 | NM ---
EXAMINATION TYPE: NM stress lexiscan cardiolite DATE OF EXAM: 09/06/2020 COMPARISON: Chest x-ray 09/01/2040 HISTORY: Chest pain, abnormal EKG TECHNIQUE: After the intravenous administration of 9.66 mCi Tc 99m Sestamibi - Cardiolite resting SP ECT images acquired 45 minutes post injection. The patient received 0.4mg Lexiscan, 24.5 mCi Tc 99m Sestamibi - Stress images obtained [address] injection FINDINGS: Review of stress and rest SPECT images demonstrates no distinct perfusion abnormality. Gated analysi s shows normal wall motion with an estimated left ventricular ejection fraction of 63 %. IMPRESSION: No scintigraphic evidence for reversible ischemia.
== END | disposition home or self-care (01) ==
LOC: RADNMMAIN 08:17
PROVIDERS: ATTEND Family Medicine
DX: R07.89 Other chest pain (principal); R94.31 Abnormal electrocardiogram [ECG] [EKG]
CPT/HCPCS: 93017; 78452; A9500; J2785

== ENCOUNTER → 2021-02-06 | Outpatient (CLI) | payer BC ==
[2021-02-06 08:56] LABS: HCT 39.3 % (34.0-46.0); HGB 13.8 gm/dL (11.4-16.0); MCH 35.5 pg (25.0-35.0); MCHC 35.1 g/dL (31.0-37.0); MCV 101.2 fL (80.0-100.0); Platelet Count 291 k/uL (150-450); RBC 3.88 m/uL (3.80-5.40); RDW 12.9 % (11.5-15.5); WBC 9.9 k/uL (3.8-10.6)
[2021-02-06 09:06] LABS: ALT 17 U/L (4-34); AST 24 U/L (14-36); African American GFR (CKD) >90 (>60 ml/min/1.73 sqM); Albumin/Globulin Ratio 1.5; Alkaline Phosphatase 91 U/L (38-126); Anion Gap 4 mmol/L; Blood Urea Nitrogen 22 mg/dL (7-17); Calcium 9.6 mg/dL (8.4-10.2); Carbon Dioxide 31 mmol/L (22-30); Chloride 104 mmol/L (98-107); Globulin 2.7 g/dL; Glucose 104 mg/dL (74-99); Non-African American GFR(CKD) >90 (>60 ml/min/1.73 sqM); Potassium 3.6 mmol/L (3.5-5.1); Sodium 139 mmol/L (137-145); Total Bilirubin 0.3 mg/dL (0.2-1.3); Total Protein 6.7 g/dL (6.3-8.2)
[2021-02-06 09:22] LABS: T4, Free (Free Thyroxine) 0.94 ng/dL (0.78-2.19)
[2021-02-06 16:51] LABS: Chol/HDL Ratio 3.71; Cholesterol 204 mg/dL (0-200); LDL Cholesterol,Calculated 117.6 mg/dL (0.0-131.0)
--- NOTE | 2021-02-08 11:40 | MM ---
Reason for exam: screening (asymptomatic). Last mammogram was performed 1 year and 4 months ago. History: Patient is postmenopausal and is nulliparous. Benign MG stereo VAD BX LT of the left breast, July 17, 2017. Benign left mammotome panel of the left breast, June 29, 2007. Benign left mammotome panel of the left breast, June 29, 2007. Physical Findings: A clinical breast exam by your physician is recommended on an annual basis and results should be correlated with mammographic findings. MG Screening Mammo w CAD Bilateral CC and MLO view(s) were taken. Prior study comparison: September 27, 2019, bilateral MG screening mammo w CAD. June 26, 2018, bilateral MG screening mammo w CAD. The breast tissue is extremely dense which could obscure a lesion on mammography. Stable benign calcifications. There is chronic nodularity bilaterally. No significant changes when compared with prior studies. ASSESSMENT: Benign, BI-RAD 2 RECOMMENDATION: Routine screening mammogram of both breasts in 1 year.
== END | disposition home or self-care (01) ==
LOC: RADMAMWWP 08:21
PROVIDERS: ATTEND Family Medicine
DX: Z12.31 Encounter for screening mammogram for malignant neoplasm of breast (principal); Z78.0 Asymptomatic menopausal state
CPT/HCPCS: 36415; 77067; 80053; 80061; 84439; 84443; 85027

== ENCOUNTER → 2022-01-30 | Outpatient (CLI) | payer BC ==
[2022-01-30 14:40] LABS: Basophils # (A) 0.02 X 10*3/uL (0.00-0.10); Basophils % (A) 0.3 %; Eosinophils # (A) 0.19 X 10*3/uL (0.04-0.35); Eosinophils % (A) 2.6 %; HCT 41.8 % (37.2-46.3); Immature Grans, Automated 0.4 %; Lymphocytes # (A) 1.94 X 10*3/uL (0.90-5.00); Lymphocytes % (A) 26.5 %; MCH 33.7 pg (27.0-32.0); MCHC 33.5 g/dL (32.0-37.0); MCV 100.7 fL (80.0-97.0); Mean Platelet Volume 9.9 fL (9.5-12.2); Monocytes # (A) 0.67 X 10*3/uL (0.20-1.00); Monocytes % (A) 9.2 %; NRBC Per 100 WBC 0 /100 WBCS (0.0-0.0); Neutrophils # (A) 4.47 X 10*3/uL (1.80-7.70); Platelet Count 310 X 10*3/uL (140-440); RBC 4.15 X 10*6/uL (4.10-5.20); RDW 13.6 % (11.5-14.5); WBC 7.32 X 10*3/uL (4.50-10.00)
[2022-01-30 18:27] LABS: ALT 21 U/L (8-44); AST 25 U/L (13-35); African American GFR (CKD) 108.9 (60.0-200.0); Albumin 4.1 g/dL (3.8-4.9); Albumin/Globulin Ratio 1.47 (1.60-3.17); Alkaline Phosphatase 84 U/L (41-126); BUN/Creat Ratio 18.05 Ratio (12.00-20.00); Blood Urea Nitrogen 12.2 mg/dL (9.0-27.0); Calcium 9.2 mg/dL (8.7-10.3); Carbon Dioxide 25.5 mmol/L (20.0-27.5); Chloride 103 mmol/L (96-109); Chol/HDL Ratio 4.21 Ratio; Globulin 2.8 g/dL (1.6-3.3); Glucose 117 mg/dL (70-110); LDL Cholesterol,Calculated 133.5 mg/dL (0.0-131.0); Non-African American GFR(CKD) 93.9 (60.0-200.0); Potassium 3.9 mmol/L (3.5-5.5); Sodium 141 mmol/L (135-145); Total Protein 6.9 g/dL (6.2-8.2)
== END | disposition home or self-care (01) ==
LOC: LABWHC1 11:07
PROVIDERS: ATTEND Family Medicine
DX: Z00.00 Encounter for general adult medical examination without abnormal findings (principal)
CPT/HCPCS: 36415; 80053; 80061; 83036; 84443; 85025

== ENCOUNTER 2022-08-28 15:17 | Emergency (ER) | payer BC ==
[2022-08-28] MEDS ORDERED: FAMOTIDINE 20 MG TAB PO STA (16:10)
[2022-08-28] MEDS ORDERED: methylPREDNISolone SOD SUCCI 125 MG/2 ML VIAL IM ONE (16:10)
--- NOTE | 2022-08-28 16:35 | ED ---
General Adult HPI - General Chief complaint: Allergic Reaction Stated complaint: allergic reaction, rash all over Time Seen by Provider: 08/28/22 16:03 Source: patient Mode of arrival: wheelchair - History of Present Illness Initial comments: Patient is a 61-year-old female presenting with chief complaint of rash. Patient states that the rash started today and is on the trunk and appendages. It is a flat erythematous rash, she admits to pruritus. Patient states that for the last 2 days she has been sick with fever, cough, diarrhea, and vomiting. Patient has been on Bactrim for UTI for the last 6 days. She is having no difficulty breathing or swallowing. She has taken Benadryl at home. No chest pain, abdominal pain, flank pain. - Related Data Home Medications Medication Instructions Recorded Confirmed Dextroamphetamine/Amphetamine 30 mg PO DIRECTED 07/31/14 08/28/22 [Adderall Xr] Simvastatin 20 mg PO HS 07/31/14 08/28/22 Aspirin [Adult Low Dose Aspirin EC] 81 mg PO DAILY 09/12/16 08/28/22 Vit C/E/Zn/Coppr/Lutein/Zeaxan 2 tab PO DAILY 02/10/19 08/28/22 [Preservision Areds 2 Softgel] Chlorthalidone [Hygroton] 25 mg PO DAILY 08/28/22 08/28/22 DULoxetine HCL [Cymbalta] 60 mg PO HS 08/28/22 08/28/22 Ferrous Sulfate [Feosol] 325 mg PO DAILY 08/28/22 08/28/22 Galcanezumab-Gnlm [Emgality 120 mg SQ Q30D 08/28/22 08/28/22 Syringe] Metoprolol Succinate (ER) [Toprol 100 mg PO HS 08/28/22 08/28/22 Xl] Vitamin B Complex 1 cap PO DAILY 08/28/22 08/28/22 Previous Rx's Medication Instructions Recorded Cephalexin [Keflex] 500 mg PO Q6HR 10 Days #40 cap 08/28/22 methylPREDNISolone Dose Pack 4 mg PO DIRECTED #1 packet 08/28/22 [Medrol Dose Pack] Allergies Allergy/AdvReac Type Severity Reaction Status Date / Time No Known Allergies Allergy Verified 08/28/22 18:17 Review of Systems ROS Statement: Those systems with pertinent positive or pertinent negative responses have been documented in the HPI. ROS Other: All systems not noted in ROS Statement are negative. Past Medical History Past Medical History: GERD/Reflux, Hyperlipidemia, Hypertension, Neurologic Disorder Additional Past Medical History / Comment(s): MIGRAINES, HIATAL HERNIA, ADD/ADHD, EARLY STAGES OF MACULAR DEGENERATION History of Any Multi-Drug Resistant Organisms: MRSA Date of last positivie culture/infection: 03/15/19 MDRO Source:: MRSA NASAL Past Surgical History: Appendectomy, Orthopedic Surgery Additional Past Surgical History / Comment(s): left foot SX-REMOVED SOME BONE FROM GREAT TOE, LEEP. COLONOSCOPY, EGD" SPLENIC DAMAGE" Past Anesthesia/Blood Transfusion Reactions: No Reported Reaction Past Psychological History: ADD/ADHD Past Alcohol Use History: Occasional Past Drug Use History: None Reported - Past Family History Mother Family Medical History: Congestive Heart Failure (CHF), Coronary Artery Disease (CAD), Myocardial Infarction ([place]) Additional Family Medical History / Comment(s): CABG, MACULAR DEGENERATION Father Additional Family Medical History / Comment(s): MACULAR DEGENERATION General Exam Limitations: no limitations General appearance: alert, in no apparent distress Head exam: Present: atraumatic, normocephalic, normal inspection Eye exam: Present: normal appearance ENT exam: Present: normal oropharynx, mucous membranes moist Expanded Throat exam: normal inspection Neck exam: Present: normal inspection, full ROM Respiratory exam: Present: normal lung sounds bilaterally. Absent: respiratory distress, wheezes, rales, rhonchi, stridor Cardiovascular Exam: Present: regular rate, normal rhythm, normal heart sounds. Absent: systolic murmur, diastolic murmur, rubs, gallop, clicks Neurological exam: Present: alert, oriented X3, CN II-XII intact Psychiatric exam: Present: normal affect, normal mood Skin exam: Present: rash Course Vital Signs 08/28/22 08/28/22 15:28 18:50 Temperature 98.1 F 98.4 F Pulse Rate 112 H 111 H Respiratory 18 22 Rate Blood Pressure 114/75 116/84 O2 Sat by Pulse 98 98 Oximetry Medical Decision Making - Medical Decision Making Was pt. sent in by a medical professional or institution (, PA, CERTIFIED MASTER SAFE TECHNICIAN, urgent care, hospital, or custodial...) When possible be specific @ -No Did you speak to anyone other than the patient for history (EMS, parent, family, police, friend...)? What history was obtained from this source @ - Did you review nursing and triage notes (agree or disagree)? Why? @ -I reviewed and agree with nursing and triage notes Were old charts reviewed (outside hosp., previous admission, EMS record, old EKG, old radiological studies, urgent care reports/EKG's, custodial records)? Report findings @ -No old charts were reviewed Differential Diagnosis (chest pain, altered mental status, abdominal pain women, abdominal pain men, vaginal bleeding, weakness, fever, dyspnea, syncope, headache, dizziness, GI bleed, back pain, seizure, CVA, palpatations, mental health)? @ -Differential includes ALLERGIC reaction, Chua-Nick syndrome, urticaria, this is not meant to be in all inclusive list EKG interpreted by me (3pts min.). @ -As above X-rays interpreted by me (1pt min.). @ -None done CT interpreted by me (1pt min.). @ -None done U/S interpreted by me (1pt. min.). @ -None done What testing was considered but not performed or refused? (CT, X-rays, U/S, labs)? Why? @ -None What meds were considered but not given or refused? Why? @ -None Did you discuss the management of the patient with other professionals (professionals i.e. , PA, CERTIFIED MASTER SAFE TECHNICIAN, lab, RT, psych nurse, psych social worker, lead pourer, teacher, fire prevention officer, gearcase assembler)? Give summary @ -No Was smoking cessation discussed for >3mins.? @ -No Was critical care preformed (if so, how long)? @ -No Were there social determinants of health that impacted care today? How? (Homelessness, low income, unemployed, alcoholism, drug addiction, transportation, low edu. Level, literacy, decrease access to med. care, prison, rehab)? @ -No Was there de-escalation of care discussed even if they declined (Discuss DNR or withdrawal of care, Hospice)? DNR status @ -No What co-morbidities impacted this encounter? (DM, HTN, Smoking, COPD, CAD, Cancer, CVA, ARF, Chemo, Hep., AIDS, mental health diagnosis, sleep apnea, morbid obesity)? @ -None Was patient admitted / discharged? Hospital course, mention meds given and route, prescriptions, significant lab abnormalities, going to OR and other pertinent info. @ -Patient is a 61-year-old female presenting with chief complaint of rash. Rash started today and is present on the trunk and extremities. She has been on Bactrim for UTI for the last 6 days. Rash is erythematous and pruritic. Negative Nikolsky sign. No abdominal pain or CVA tenderness. Patient is negative for influenza, RSV, and Covid. Her urine still shows signs of UTI, we'll start her on Keflex and send urine for culture. Sent Medrol Dosepak to help with pruritic rash. Take Benadryl as needed. Follow-up with PCP. Report back to ER with any new or worsening symptoms. Discussed return parameters and answered all questions. Patient conveyed verbal understanding and agreed to the plan. I discussed this case in detail with my attending Dr. Salgado Undiagnosed new problem with uncertain prognosis? @ -No Drug Therapy requiring intensive monitoring for toxicity (Heparin, Nitro, Insulin, Cardizem)? @ -No Were any procedures done? @ -No Diagnosis/symptom? @ -UTI Acute, or Chronic, or Acute on Chronic? @ -Acute Uncomplicated (without systemic symptoms) or Complicated (systemic symptoms)? @ -Uncomplicated Side effects of treatment? @ -Unlikely to worsening rash Exacerbation, Progression, or Severe Exacerbation? @ -No Diagnosis/symptom? @Urticaria Acute, or Chronic, or Acute on Chronic? @Acute Uncomplicated (without systemic symptoms) or Complicated (systemic symptoms)? @uncomplicated Side effects of treatment? @ none Exacerbation, Progression, or Severe Exacerbation] @ no - Lab Data Lab Results 08/28/22 08/28/22 Range/Units 15:35 17:53 Urine Color Yellow Urine Appearance Cloudy H (Clear) Urine pH 6.0 (5.0-8.0) Ur Specific [place] 1.024 (1.001-1.035) Urine Protein 1+ H (Negative) Urine Glucose (UA) Negative (Negative) Urine Ketones Negative (Negative) Urine Blood Large H (Negative) Urine Nitrite Negative (Negative) Urine Bilirubin Negative (Negative) Urine Urobilinogen <2.0 (<2.0) mg/dL Ur Leukocyte Esterase Small H (Negative) Urine RBC 14 H (0-5) /hpf Urine WBC 21 H (0-5) /hpf Ur Squamous Epith Cells <1 (0-4) /hpf Hyaline Casts 150 H (0-2) /lpf Urine Mucus Moderate H (None) /hpf Influenza Type A (PCR) Not Detected (Not Detectd) Influenza Type B (PCR) Not Detected (Not Detectd) RSV (PCR) Not Detected (Not Detectd) SARS-CoV-2 (PCR) Not Detected (Not Detectd) Disposition Clinical Impression: Urticaria, UTI (urinary tract infection) Disposition: HOME SELF-CARE Condition: Good Instructions (If sedation given, give patient instructions): Urinary Tract Infection in Women (ED), Urticaria (ED) Additional Instructions: Follow-up with PCP. Report back to ER with any new or worsening symptoms. Take medication as prescribed. Take Benadryl as needed for rash. Prescriptions: Cephalexin [Keflex] 500 mg PO Q6HR 10 Days #40 cap methylPREDNISolone Dose Pack [Medrol Dose Pack] 4 mg PO DIRECTED #1 packet Is patient prescribed a controlled substance at d/c from ED?: No Referrals: Tiffanie Lara MD [Primary Care Provider] - 1-2 days Time of Disposition: 19:02
[2022-08-28 18:46] LABS: Appearance,Urine Cloudy (Clear); Bilirubin,Urine Negative (Negative); Blood,Urine Large (Negative); Color,Urine Yellow; Glucose,Urine (UA) Negative (Negative); Hyaline Casts,Urine 150 /lpf (0-2); Ketones,Urine Negative (Negative); Leukocyte Esterase,Urine Small (Negative); Mucus,Urine Moderate /hpf; Nitrite,Urine Negative (Negative); Protein,Urine 1+ (Negative); RBC,Urine 14 /hpf (0-5); Specific Gravity,Urine 1.024 (1.001-1.035); Squamous Epithelial Cell,Urine <1 /hpf (0-4); Urobilinogen,Urine <2.0 mg/dL (<2.0); WBC,Urine 21 /hpf (0-5)
[2022-08-28 18:51] VITALS: BP 116/84; PULSE 111; RESP 22; TEMP 98.4
[2022-08-28] MEDS ORDERED: ACETAMINOPHEN TAB 325 MG TAB PO STA (18:52)
[2022-08-28] MEDS ORDERED: IBUPROFEN 600 MG TAB PO STA (18:52)
== END 2022-08-28 19:11 | disposition home or self-care (01) ==
LOC: EC 15:17
DX: L50.9 Urticaria, unspecified (principal); N39.0 Urinary tract infection, site not specified; K21.9 Gastro-esophageal reflux disease without esophagitis; E78.5 Hyperlipidemia, unspecified; I10 Essential (primary) hypertension; Z79.82 Long term (current) use of aspirin; Z79.899 Other long term (current) drug therapy; Z20.822 Contact with and (suspected) exposure to COVID-19
CPT/HCPCS: 81001; 87086; 87636; 99283; 96374; J2930

== ENCOUNTER → 2022-12-09 | Outpatient (CLI) | payer BC ==
--- NOTE | 2023-01-13 10:06 | EM ---
EVENT MONITOR A 30-day event monitor. FINDINGS: The patient was monitored for 24 hours. The baseline rhythm appeared to be sinus mechanism. The patient did have multiple episodes of sinus tachycardia. Besides that, the patient did have 1 short episode of SVT. No evidence of any significant sinus pause or sinus arrest. No evidence of any advanced AV block noted. CONCLUSION: 1. This is a 30-day event monitor. 2. The baseline rhythm appeared to be sinus mechanism. 3. The patient did have multiple episodes of sinus tachycardia. 4. The patient did have 1 short episode of atrial tachycardia/ . MMODL / IJN: [id number] /
== END | disposition home or self-care (01) ==
LOC: RADECHMAIN 07:21
PROVIDERS: ATTEND Family Medicine
DX: I47.1 Supraventricular tachycardia (principal); R00.2 Palpitations
CPT/HCPCS: 93270